=== PATIENT | male | born 1990 | race Caucasian/White ===

== ENCOUNTER 2018-10-03 22:08 | Emergency (ER) | payer OTHER ==
[2018-10-03 22:16] VITALS: BP 151/81; PULSE 73; RESP 16; TEMP 98.4
--- NOTE | 2018-10-03 22:42 | ED ---
General Adult HPI - General Chief complaint: Animal Bite Stated complaint: Spider bite Time Seen by Provider: 10/03/18 22:26 Source: patient Mode of arrival: ambulatory Limitations: no limitations - History of Present Illness Initial comments: This is a 28-year-old male who presents emergency department for redness and swelling of the right elbow. The patient states he noticed a few days ago and has gradually worsened. He states that there is been some drainage that he has been squeezing out of it. He is noticed that there is been increased swelling on the forearm she decided come emergency department. He denies any fevers or chills. No numbness, tingling, or weakness in his extremity. He does not recall exactly how he got the lesion there. He denies any other cuts or wounds. No other redness anywhere else. No other acute complaints. - Related Data Home Medications Medication Instructions Recorded Confirmed No Known Home Medications 10/03/18 10/03/18 Previous Rx's Medication Instructions Recorded Sulfamethox-Tmp 800-160Mg [Bactrim 1 tab PO Q12HR #14 tab 10/03/18 DS 800-160 mg] Allergies Allergy/AdvReac Type Severity Reaction Status Date / Time No Known Allergies Allergy Verified 10/03/18 22:16 Review of Systems ROS Statement: Those systems with pertinent positive or pertinent negative responses have been documented in the HPI. ROS Other: All systems not noted in ROS Statement are negative. Past Medical History Additional Past Medical History / Comment(s): ulcerative colitis. History of Any Multi-Drug Resistant Organisms: None Reported Past Surgical History: No Surgical Hx Reported Past Psychological History: No Psychological Hx Reported Smoking Status: Former smoker Past Alcohol Use History: None Reported Past Drug Use History: None Reported General Exam - General Exam Comments Initial Comments: Constitutional: [Awake alert] [Appears comfortable] Head: [Normocephalic atraumatic] Eyes: [no conjunctival injection] [No scleral icterus] [EOMI] Neck: [No JVD] [Supple] Heart: [Regular rate rhythm] [normal S1-S2] [no murmurs] Lungs: [Clear to auscultation bilaterally] [No wheezing] [No rales] Abdomen: [Soft] [nondistended] [nontender] Extremities: [Non edematous] [DP pulses intact] [Radial pulses intact], there is a 2 cm in diameter abscess to the right posterior elbow just distal to the olecranon. There is cellulitis extending down the forearm to about the mid forearm. The patient is neurovascularly intact distally. Neuro: [A&Ox3] [No focal neurologic deficits] Psych: [Appropriate mood and affect] Limitations: no limitations Course Vital Signs 10/03/18 22:13 Temperature 98.4 F Pulse Rate 73 Respiratory 16 Rate Blood Pressure 151/81 O2 Sat by Pulse 98 Oximetry Procedures - Incision & Drainage Consent Obtained: verbal consent Site: upper extremity Size (cm): 2 Anesthetic Used: lidocaine 1% Amount (mLs): 2 I&D Cleaning Method: Betadine Sterile Field Used?: Yes Scalpel Used: #15 I&D Drainage Obtained: Pus, Blood Culture Obtained?: No Patient Tolerated Procedure: well, no complications Medical Decision Making - Medical Decision Making This is a 28-year-old male who presents emergency department for redness of the right elbow. The patient was found have an abscess. This was incised and drained at bedside. The patient tolerated this well. The patient will be sent home with Bactrim to take twice a day. Told to return if he had increased swelling or redness. Otherwise follow-up with his primary doctor for reevaluation in the next few days. All questions were answered. Disposition Clinical Impression: Abscess Disposition: HOME SELF-CARE Condition: Stable Instructions: Abscess (ED) Prescriptions: Sulfamethox-Tmp 800-160Mg [Bactrim DS 800-160 mg] 1 tab PO Q12HR #14 tab Is patient prescribed a controlled substance at d/c from ED?: No Referrals: Negra Weldon MD [Primary Care Provider] - 1-2 days
== END 2018-10-03 22:57 | disposition home or self-care (01) ==
LOC: EC 22:08
DX: L02.413 Cutaneous abscess of right upper limb (principal); Z87.891 Personal history of nicotine dependence
CPT/HCPCS: 10060; 99283

== ENCOUNTER 2019-11-13 16:20 | Emergency (ER) | payer OTHER ==
[2019-11-13 16:50] VITALS: BP 121/79; PULSE 87; RESP 18; TEMP 99.5
[2019-11-13] MEDS ORDERED: ACETAMINOPHEN TAB 325 MG TAB PO STA (17:19)
--- NOTE | 2019-11-13 17:52 | ED ---
URI HPI - General Chief Complaint: Upper Respiratory Infection Stated Complaint: sore throat/congestion/headache Source: patient Mode of arrival: ambulatory Limitations: no limitations - History of Present Illness Initial Comments: 29yo with no PMH presenting for cc of sore throat, cough congestion x 1 day. Patient states he was feeling okay yesterday but today dveloped a severe sore throat and cough.cannot discern. Throat Patient thinks he has a fever. Denies any chest pain shortness of breath. Patient denies any difficulty breathing patient denies neck stiffness. Patient states his a slight headache radial review of systems negative upon arrival patient appears well besides acute distress - Related Data Previous Rx's Medication Instructions Recorded Sulfamethox-Tmp 800-160Mg [Bactrim 1 tab PO Q12HR #14 tab 10/03/18 DS 800-160 mg] Oseltamivir [Tamiflu] 75 mg PO Q12HR 5 Days #10 cap 11/13/19 Allergies Allergy/AdvReac Type Severity Reaction Status Date / Time No Known Allergies Allergy Verified 11/13/19 16:47 Review of Systems ROS Statement: Those systems with pertinent positive or pertinent negative responses have been documented in the HPI. ROS Other: All systems not noted in ROS Statement are negative. Past Medical History Additional Past Medical History / Comment(s): ulcerative colitis. History of Any Multi-Drug Resistant Organisms: None Reported Past Surgical History: No Surgical Hx Reported Past Psychological History: No Psychological Hx Reported Smoking Status: Former smoker Past Alcohol Use History: None Reported Past Drug Use History: None Reported General Exam - General Exam Comments Initial Comments: General: The patient is awake and alert, in no distress, and does not appear acutely ill. Eye: +3 mm pupils are equal, round and reactive to light, extra-ocular movements are intact. No nystagmus. There is normal conjunctiva bilaterally. No signs of icterus. No photophobia Ears, nose, mouth and throat: There are moist mucous membranes and no oral lesions. Oropharynx was erythematous there is no tonsillar enlargement exudates or lesions. Uvula midline. Tympanic membranes are not erythematous or is no effusions bulging or retraction. No tenderness to palpation of the mastoid. No anterior cervical lymphadenopathy. Rhinorrhea, clear and bilateral nares. No tripoding, no drooling. Neck: The neck is supple, there is no tenderness or JVD. No nuchal rigidity Cardiovascular: There is a regular rate and rhythm. No murmur, rub or gallop is appreciated. Respiratory: Lungs are clear to auscultation, respirations are non-labored, breath sounds are equal. No wheezes, stridor, rales, or rhonchi. No retractions or abdominal breathing. Dry cough Gastrointestinal: Soft, non-distended, non-tender abdomen without masses or organomegaly noted. There is no rebound or guarding present. Bowel sounds are unremarkable. Musculoskeletal: Normal ROM, no tenderness. Strength 5/5. Sensation intact. Radial pulses equal bilaterally 2+. Neurological: A&O x 3. CN II-XII intact grossly, There are no obvious motor or sensory deficits. Coordination appears grossly intact. Speech appears normal, no muffling. Skin: Skin is warm and dry and no rashes or lesions are noted. No extremity edema Psychiatric: Cooperative Limitations: no limitations Course Vital Signs 11/13/19 16:47 Temperature 99.5 F Pulse Rate 87 Respiratory 18 Rate Blood Pressure 121/79 O2 Sat by Pulse 98 Oximetry Medical Decision Making - Medical Decision Making review of present for sore throat cough fever. Influenza B-positive. Patient appears well no signs of respiratory distress. Chest x-ray clear no pneumonia. At this time I feel patient is stable for discharge with Tamiflu. Patient agreeable to care plan and discharge. Return parameters discussed. Case discussed with Dr. Baker. - Lab Data Lab Results 11/13/19 11/13/19 Range/Units 17:18 17:18 Influenza Type A RNA Not Detected (Not Detectd) Influenza Type B (PCR) Detected H (Not Detectd) Group A Strep Rapid Negative (Negative) Disposition Clinical Impression: Influenza B Disposition: HOME SELF-CARE Condition: Good Instructions (If sedation given, give patient instructions): Influenza (ED) Additional Instructions: Please use medication as discussed. Please follow-up with family doctor in the next 2 days Please return to emergency room if the symptoms increase or worsen or for any other concerns-difficulty breathing. Prescriptions: Oseltamivir [Tamiflu] 75 mg PO Q12HR 5 Days #10 cap Is patient prescribed a controlled substance at d/c from ED?: No Referrals: Negra Weldon MD [Primary Care Provider] - 1-2 days Time of Disposition: 17:52
--- NOTE | 2019-11-13 18:09 | XR ---
EXAMINATION TYPE: XR chest 2V DATE OF EXAM: 11/13/2019 COMPARISON: None INDICATION: Fever, cough TECHNIQUE: Frontal and lateral views of the chest are obtained. FINDINGS: The heart size is normal. The pulmonary vasculature is normal. The lungs are clear. IMPRESSION: 1. No acute pulmonary process.
== END 2019-11-13 19:14 | disposition home or self-care (01) ==
LOC: EC 16:20
DX: J10.1 Influenza due to other identified influenza virus with other respiratory manifestations (principal); Z87.891 Personal history of nicotine dependence
CPT/HCPCS: 71046; 87081; 87430; 87502; 99284

== ENCOUNTER 2019-11-22 10:10 | Emergency (ER) | payer OTHER ==
[2019-11-22 10:23] VITALS: BP 126/73; RESP 18; TEMP 99.1
[2019-11-22] MEDS ORDERED: IPRATROPIUM-ALBUTEROL 3 ML NEB INHALATION STA (10:43)
[2019-11-22] MEDS ORDERED: LIDOCAINE VISCOUS 2% 15 ML CUP MUCOUS MEM ONE (10:43)
--- NOTE | 2019-11-22 10:57 | XR ---
EXAMINATION TYPE: XR soft tissue neck , 2 VIEWS DATE OF EXAM ORDERED: 11/22/2019 HISTORY: Difficult swallowing. COMPARISON: None. FINDINGS: Prevertebral soft tissues are normal. The epiglottis is normal. No radiopaque foreign body is seen. IMPRESSION: NORMAL SOFT TISSUE VIEWS OF THE NECK.
--- NOTE | 2019-11-22 10:58 | XR ---
EXAMINATION TYPE: XR chest 2V DATE OF EXAM: 11/22/2019 HISTORY: cough. REFERENCE: Previous study dated 11/13/2019. FINDINGS: Lungs remain clear. Pleural space are clear. The heart is not enlarged. IMPRESSION: NORMAL CHEST.
[2019-11-22 10:59] VITALS: PULSE 68
[2019-11-22] MEDS ORDERED: DEXAMETHASONE SOD PHOSPHATE 4 MG/ML 1 ML VIAL PO ONE (11:05)
--- NOTE | 2019-11-22 11:07 | ED ---
ENT HPI - General Chief complaint: ENT Stated complaint: Throat Tightness/DENITA Time Seen by Provider: 11/22/19 10:24 Source: patient, RN notes reviewed Mode of arrival: ambulatory Limitations: no limitations - History of Present Illness Initial comments: 29-year-old male presents emergency Department with chief complaint of sore throat, congestion. Patient states that he was diagnosed with influenza tetanus Tamiflu states that he was doing well but states in the 48 hours is worsened states that his pain was well because of pain. He has no shortness of breath is not a slight cough. Patient states that he felt something bulging out of his neck and he felt that he had a push it back in when he was lifting weights. Patient states he has not had this recur at this time. Patient denies any recent fevers chills no neck stiffness or headache or dizziness. - Related Data Previous Rx's Medication Instructions Recorded Sulfamethox-Tmp 800-160Mg [Bactrim 1 tab PO Q12HR #14 tab 10/03/18 DS 800-160 mg] Oseltamivir [Tamiflu] 75 mg PO Q12HR 5 Days #10 cap 11/13/19 Azithromycin [Zithromax Z-pack] 0 mg PO DIRECTED #1 pack 11/22/19 Allergies Allergy/AdvReac Type Severity Reaction Status Date / Time No Known Allergies Allergy Verified 11/22/19 10:22 Review of Systems ROS Statement: Those systems with pertinent positive or pertinent negative responses have been documented in the HPI. ROS Other: All systems not noted in ROS Statement are negative. Past Medical History Additional Past Medical History / Comment(s): ulcerative colitis. History of Any Multi-Drug Resistant Organisms: C-DIFF Date of last positivie culture/infection: 2010 Past Surgical History: No Surgical Hx Reported Past Psychological History: No Psychological Hx Reported Smoking Status: Former smoker Past Alcohol Use History: None Reported Past Drug Use History: None Reported General Exam Limitations: no limitations General appearance: alert, in no apparent distress Head exam: Present: atraumatic, normocephalic, normal inspection Eye exam: Present: normal appearance, PERRL, EOMI. Absent: scleral icterus, conjunctival injection, periorbital swelling ENT exam: Present: mucous membranes moist, TM's normal bilaterally, normal external ear exam. Absent: normal oropharynx (Erythema posterior pharynx swan secretions well) Neck exam: Present: normal inspection, full ROM. Absent: tenderness, meningismus, lymphadenopathy Respiratory exam: Present: normal lung sounds bilaterally. Absent: respiratory distress, wheezes, rales, rhonchi, stridor Cardiovascular Exam: Present: regular rate, normal rhythm, normal heart sounds. Absent: systolic murmur, diastolic murmur, rubs, gallop, clicks Course Vital Signs 11/22/19 11/22/19 10:19 10:57 Temperature 99.1 F Pulse Rate 67 68 Respiratory 18 Rate Blood Pressure 126/73 O2 Sat by Pulse 98 Oximetry Medical Decision Making - Medical Decision Making Chest x-ray and soft tissue x-ray unremarkable patient's on secretions well. There is concern for possible strep infection. Patient was started on antibiotics return parameters were discussed. Disposition Clinical Impression: Acute pharyngitis Disposition: HOME SELF-CARE Condition: Stable Instructions (If sedation given, give patient instructions): Pharyngitis (ED) Additional Instructions: Please return to the Emergency Department if symptoms worsen or any other concerns. Prescriptions: Azithromycin [Zithromax Z-pack] 0 mg PO DIRECTED #1 pack Is patient prescribed a controlled substance at d/c from ED?: No Referrals: Negra Weldon MD [Primary Care Provider] - 1-2 days Time of Disposition: 11:06
== END 2019-11-22 11:13 | disposition home or self-care (01) ==
LOC: EC 10:10
DX: J02.9 Acute pharyngitis, unspecified (principal); Z87.891 Personal history of nicotine dependence
CPT/HCPCS: 94640; 70360; 71046; 99283; J1100

== ENCOUNTER → 2020-07-11 | Outpatient (CLI) | payer OTHER ==
--- NOTE | 2020-07-11 17:19 | FL ---
EXAMINATION TYPE: FL barium swallow DATE OF EXAM: 07/11/2020 CLINICAL HISTORY: Dysphasia, history of ulcerative colitis TECHNIQUE: A double contrast esophagram is performed utilizing air and barium. A total of 61 second s of fluoroscopic time was utilized during procedure. 14 images COMPARISON: None FINDINGS: Esophagus dilates to normal caliber has normal contour to the gastroesophageal junction. Ga stroesophageal junction opens to normal caliber. There is normal propulsion of the esophageal bolus i n the horizontal drinking position. No secondary or tertiary contractions are evident. With rolling o n the table, very minimal reflux in the distal esophagus may be present. IMPRESSION: 1. Very minimal gastroesophageal reflux. 2. No suspicious abnormality within the esophagram otherwise.
== END | disposition home or self-care (01) ==
LOC: RADUSWWP 08:43
PROVIDERS: ATTEND Family Medicine
DX: K21.9 Gastro-esophageal reflux disease without esophagitis (principal)
CPT/HCPCS: 74220

== ENCOUNTER → 2020-11-22 | Day surgery (SDC) | payer OTHER ==
[2020-11-17 11:49] VITALS: BMI 24.8
[~2020-11-22] MED LIST: LACTATED RINGERS 1,000 ML IV ONE; LACTATED RINGERS 1,000 ML IV SCH; LIDOCAINE 1% (10MG/ML) FOR IV START INTRADERMA PRN; LIDOCAINE 1% INJ 10MG/ML (20 ML MDV) ONE; MIDAZOLAM 2 MG/2 ML VIAL ONE; PROPOFOL 10 MG/ML 20 ML VIAL IV ONE; fentaNYL (PF) 50 MCG/ML 2 ML AMP ONE
[2020-11-22 10:49] VITALS: TEMP 97.8
--- NOTE | 2020-11-22 11:17 | P.GSHP ---
History of Present Illness H&P Date: 11/22/20 Chief Complaint: GERD, dysphagia, rectal bleed 30-year-old male here for upper and lower endoscopy. Patient has had complaints of a fullness in his throat. Says it difficult to swallow and breathing at times. Says he needs to sleep with something pop under his chin at times to help with his breathing. Also describes some reflux. Recent upper GI shows mild reflux. Patient's ENT at [facility]. They are requesting upper endoscopy. Patient also has history of ulcerative colitis. No recent therapy for that. Has rare episodes of rectal bleeding. Past Medical History Additional Past Medical History / Comment(s): ulcerative colitis. History of Any Multi-Drug Resistant Organisms: C-DIFF Date of last positivie culture/infection: 2010 MDRO Source:: STOOL Past Surgical History: No Surgical Hx Reported Additional Past Surgical History / Comment(s): COLONOSCPOY Past Anesthesia/Blood Transfusion Reactions: No Reported Reaction Smoking Status: Former smoker, Vaper - Past Family History Mother Family Medical History: No Reported History Medications and Allergies Home Medications Medication Instructions Recorded Confirmed Type Omeprazole 20 mg PO BID 11/17/20 11/17/20 History Allergies Allergy/AdvReac Type Severity Reaction Status Date / Time No Known Allergies Allergy Verified 11/17/20 11:42 Surgical - Exam Vital Signs Temp Pulse Resp BP Pulse Ox 97.8 F 78 18 132/78 98 11/22/20 10:48 11/22/20 10:48 11/22/20 10:48 11/22/20 10:48 11/22/20 10:48 Physical exam: General: Well-developed, well-nourished HEENT: Normocephalic, sclerae nonicteric Abdomen: Nontender, nondistended Extremities: No edema Neuro: Alert and oriented Assessment and Plan (1) Rectal bleeding Narrative/Plan: Will proceed with upper and lower endoscopy Current Visit: Yes Status: Acute Code(s): K62.5 - HEMORRHAGE OF ANUS AND RECTUM SNOMED Code(s): 01502813
--- NOTE | 2020-11-22 11:35 | P.PCN ---
Date of Procedure: 11/22/20 Procedure(s) Performed: PREOPERATIVE DIAGNOSIS: GERD, dysphagia, globus, rectal bleeding POSTOPERATIVE DIAGNOSIS: Gastritis, mild proctitis PROCEDURE: 1. EGD with biopsy 2. Colonoscopy with biopsy ANESTHESIA: MAC SURGEON: Gibson Ann M.D. SPECIMENS: Antrum, body ENDOSCOPIC PROCEDURE: The patient was on the endoscopy table in the left decubitus position. The Olympus gastroscope was inserted into the oropharynx and passed under direct visualization to the region of the third portion of the duodenum. From that point the scope was slowly withdrawn inspecting all surfaces carefully. There were no neoplastic inflammatory or polypoid lesions throughout the duodenum. The pylorus was widely patent. The stomach was carefully inspected. There was gastritis present. A biopsy of the antrum took place to rule out H. pylori. A biopsy of the body of the stomach also took place where the gastritis was more impressive. There were no ulcerations or erosions seen. Retroflexion revealed a normal hiatus. The esophagus was then carefully examined. There were no neoplastic inflammatory or polypoid lesions throughout the visualized esophagus. The patient was kept on the endoscopy table in the left decubitus position. The Olympus colonoscope was inserted into the anus and passed under direct visualization to the base of the cecum. The appendiceal orifice was visualized. From that point the scope was slowly withdrawn inspecting all surfaces carefully. There were no neoplastic inflammatory or polypoid lesions throughout the cecum, ascending, transverse, descending, and sigmoid colon. In the rectum there was noted be minimal inflammatory changes seen distally. Biopsies were taken to rule out proctitis. There was no visible diverticulosis. The patient's prep overall was somewhat poor particularly on the right side of the colon with some retained stool. Digital rectal examination was normal. The patient was taken to the recovery room in stable condition per anesthesia guidelines. RECOMMENDATIONS: Await biopsy results. Returned to ENT if complaints of globus persist.
[2020-11-22 11:40] VITALS: RESP 16
[2020-11-22 12:02] VITALS: BP 118/44; PULSE 54
== END ==
LOC: ORWHC2ENDO 10:35
PROVIDERS: ATTEND Surgery
DX: K29.51 Unspecified chronic gastritis with bleeding (principal); K51.211 Ulcerative (chronic) proctitis with rectal bleeding; K21.9 Gastro-esophageal reflux disease without esophagitis; F45.8 Other somatoform disorders; F17.290 Nicotine dependence, other tobacco product, uncomplicated; Z86.19 Personal history of other infectious and parasitic diseases; Z98.890 Other specified postprocedural states; Z79.899 Other long term (current) drug therapy
CPT/HCPCS: 88305; 45380; 43239; J2250; J2001; J3010; J2704

== ENCOUNTER 2021-03-28 12:39 | Observation (INO) | payer OTHER ==
--- NOTE | 2021-03-28 12:55 | ED ---
General Adult HPI - General Chief complaint: Chest Pain Stated complaint: abn EKG Time Seen by Provider: 03/28/21 12:46 Source: patient, RN notes reviewed Mode of arrival: ambulatory Limitations: no limitations - History of Present Illness Initial comments: Patient is a pleasant 30-year-old male presenting to the emergency Department with chest discomfort. Patient states discomfort has been occurring for quite some while at this time. Patient states he does have palpitations: Feeling like his heart beat is irregular and pounding. Patient states at this time only has mild sharp discomfort. Patient did go to his doctor and was sent over secondary to bradycardia. Patient had 2 EKGs showing heart rate of 34 and 37. Patient states he did have history of bradycardia in the past however was told he was too young to need a pacemaker. 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 - Related Data Home Medications Medication Instructions Recorded Confirmed No Known Home Medications 03/28/21 03/28/21 Allergies Allergy/AdvReac Type Severity Reaction Status Date / Time No Known Allergies Allergy Verified 03/28/21 13:39 Review of Systems ROS Statement: Those systems with pertinent positive or pertinent negative responses have been documented in the HPI. ROS Other: All systems not noted in ROS Statement are negative. Constitutional: Denies: fever Eyes: Denies: eye pain ENT: Denies: ear pain Respiratory: Denies: cough Cardiovascular: Reports: as per HPI, chest pain, palpitations Endocrine: Denies: fatigue Gastrointestinal: Denies: abdominal pain Genitourinary: Denies: urgency Musculoskeletal: Denies: back pain Skin: Denies: rash Neurological: Denies: weakness Past Medical History Additional Past Medical History / Comment(s): ulcerative colitis. History of Any Multi-Drug Resistant Organisms: C-DIFF Date of last positivie culture/infection: 2010 Past Surgical History: No Surgical Hx Reported Past Psychological History: No Psychological Hx Reported Smoking Status: Vaper Past Alcohol Use History: None Reported Past Drug Use History: None Reported, Marijuana General Exam Limitations: no limitations General appearance: alert, in no apparent distress Head exam: Present: normocephalic Eye exam: Present: normal appearance Neck exam: Present: normal inspection Respiratory exam: Present: normal lung sounds bilaterally. Absent: chest wall tenderness Cardiovascular Exam: Present: regular rate, normal rhythm, normal heart sounds Expanded Peripheral pulses: 2+: Radial (R), Radial (L), Posterior Tibialis (R), Posterior Tibialis (L) GI/Abdominal exam: Present: soft. Absent: tenderness Extremities exam: Present: normal inspection. 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 Short AR of 102. QRS 108. QT 426. QTc 384. Normal axis. LVH criteria. No acute ST change. Medical Decision Making - Medical Decision Making Patient reevaluated and resting comfortably in bed. Heart rate 44. Patient updated on results and plan. Case discussed with Dr. Burns, who will admit covering for Dr. Inga Poon. Patient will benefit from echo and cardiology evaluation. - Lab Data Result diagrams: 03/28/21 13:08 03/28/21 13:08 Lab Results 03/28/21 03/28/21 03/28/21 Range/Units 13:08 13:08 13:08 WBC 5.0 (3.8-10.6) k/uL RBC 4.97 (4.30-5.90) m/uL Hgb 16.0 (13.0-17.5) gm/dL Hct 46.4 (39.0-53.0) % MCV 93.3 (80.0-100.0) fL MCH 32.2 (25.0-35.0) pg MCHC 34.5 (31.0-37.0) g/dL RDW 12.4 (11.5-15.5) % Plt Count 237 (150-450) k/uL MPV 8.3 Neutrophils % 64 % Lymphocytes % 25 % Monocytes % 6 % Eosinophils % 1 % Basophils % 0 % Neutrophils # 3.2 (1.3-7.7) k/uL Lymphocytes # 1.3 (1.0-4.8) k/uL Monocytes # 0.3 (0-1.0) k/uL Eosinophils # 0.1 (0-0.7) k/uL Basophils # 0.0 (0-0.2) k/uL PT 11.0 (9.0-12.0) sec INR 1.0 (<1.2) APTT 22.9 (22.0-30.0) sec Sodium 140 (137-145) mmol/L Potassium 4.5 (3.5-5.1) mmol/L Chloride 107 (98-107) mmol/L Carbon Dioxide 24 (22-30) mmol/L Anion Gap 9 mmol/L BUN 14 (9-20) mg/dL Creatinine 1.27 H (0.66-1.25) mg/dL Est GFR (CKD-EPI)AfAm 87 (>60 ml/min/1.73 sqM) Est GFR (CKD-EPI)NonAf 75 (>60 ml/min/1.73 sqM) Glucose 132 H (74-99) mg/dL Calcium 9.8 (8.4-10.2) mg/dL Magnesium 1.9 (1.6-2.3) mg/dL Total Bilirubin 0.8 (0.2-1.3) mg/dL AST 50 (17-59) U/L ALT 68 H (4-49) U/L Alkaline Phosphatase 60 (38-126) U/L Creatine Kinase 134 (55-170) U/L Troponin I (0.000-0.034) ng/mL Total Protein 7.7 (6.3-8.2) g/dL Albumin 4.7 (3.5-5.0) g/dL TSH 1.450 (0.465-4.680) mIU/L Free T4 1.21 (0.78-2.19) ng/dL Free T3 pg/mL 5.1 (2.8-5.3) pg/ml 03/28/21 Range/Units 13:08 WBC (3.8-10.6) k/uL RBC (4.30-5.90) m/uL Hgb (13.0-17.5) gm/dL Hct (39.0-53.0) % MCV (80.0-100.0) fL MCH (25.0-35.0) pg MCHC (31.0-37.0) g/dL RDW (11.5-15.5) % Plt Count (150-450) k/uL MPV Neutrophils % % Lymphocytes % % Monocytes % % Eosinophils % % Basophils % % Neutrophils # (1.3-7.7) k/uL Lymphocytes # (1.0-4.8) k/uL Monocytes # (0-1.0) k/uL Eosinophils # (0-0.7) k/uL Basophils # (0-0.2) k/uL PT (9.0-12.0) sec INR (<1.2) APTT (22.0-30.0) sec Sodium (137-145) mmol/L Potassium (3.5-5.1) mmol/L Chloride (98-107) mmol/L Carbon Dioxide (22-30) mmol/L Anion Gap mmol/L BUN (9-20) mg/dL Creatinine (0.66-1.25) mg/dL Est GFR (CKD-EPI)AfAm (>60 ml/min/1.73 sqM) Est GFR (CKD-EPI)NonAf (>60 ml/min/1.73 sqM) Glucose (74-99) mg/dL Calcium (8.4-10.2) mg/dL Magnesium (1.6-2.3) mg/dL Total Bilirubin (0.2-1.3) mg/dL AST (17-59) U/L ALT (4-49) U/L Alkaline Phosphatase (38-126) U/L Creatine Kinase (55-170) U/L Troponin I <0.012 (0.000-0.034) ng/mL Total Protein (6.3-8.2) g/dL Albumin (3.5-5.0) g/dL TSH (0.465-4.680) mIU/L Free T4 (0.78-2.19) ng/dL Free T3 pg/mL (2.8-5.3) pg/ml - Radiology Data Radiology results: image reviewed (Chest x-ray shows no acute process) Disposition Clinical Impression: Chest pain, Bradycardia Disposition: ADMITTED IP TO THIS [facility] Is patient prescribed a controlled substance at d/c from ED?: No Referrals: Negra Weldon MD [Primary Care Provider] - 1-2 days Decision Time: 14:09
[2021-03-28 13:21] LABS: Basophils % (A) 0 %; Eosinophils # (A) 0.1 k/uL (0-0.7); Eosinophils % (A) 1 %; HCT 46.4 % (39.0-53.0); Lymphocytes # (A) 1.3 k/uL (1.0-4.8); Lymphocytes % (A) 25 %; MCH 32.2 pg (25.0-35.0); MCHC 34.5 g/dL (31.0-37.0); MCV 93.3 fL (80.0-100.0); Mean Platelet Volume 8.3; Monocytes # (A) 0.3 k/uL (0-1.0); Monocytes % (A) 6 %; Neutrophils # (A) 3.2 k/uL (1.3-7.7); Neutrophils % (A) 64 %; Platelet Count 237 k/uL (150-450); RBC 4.97 m/uL (4.30-5.90); RDW 12.4 % (11.5-15.5)
--- NOTE | 2021-03-28 13:27 | XR ---
EXAMINATION TYPE: XR chest 2V DATE OF EXAM: 03/28/2021 COMPARISON: Chest x-ray April 22, 2020 HISTORY: Abnormal EKG. Bradycardia. TECHNIQUE: Frontal and lateral views of the chest are obtained. FINDINGS: There is no suspicious new focal air space opacity, pleural effusion, or pneumothorax seen . The cardiac silhouette size remains within normal limits. The osseous structures are intact. Ove rlying EKG leads are now present. IMPRESSION: No acute cardiopulmonary process. No significant change from prior.
[2021-03-28 13:30] LABS: Albumin 4.7 g/dL (3.5-5.0); Calcium 9.8 mg/dL (8.4-10.2); Magnesium 1.9 mg/dL (1.6-2.3); Potassium 4.5 mmol/L (3.5-5.1); Total Bilirubin 0.8 mg/dL (0.2-1.3); Total Protein 7.7 g/dL (6.3-8.2)
[2021-03-28 13:47] LABS: T4, Free (Free Thyroxine) 1.21 ng/dL (0.78-2.19)
[2021-03-28 14:00] LABS: Partial Thromboplastin Time 22.9 sec (22.0-30.0)
[2021-03-28] MEDS ORDERED: ASPIRIN 81 MG PO STA (14:09)
--- NOTE | 2021-03-28 17:23 | P.HPIM ---
History of Present Illness 30-year-old male came in to he was sent from PCPs office for bradycardia. Patient also did complain of mild chest pressure like sensation which resolved at this time it's in the retrosternal area nonradiating not associated with food nonpleuritic. Patient didn't feel somewhat irregular and pounding sensation. Patient is found to have sinus bradycardia because of which patient was sent here. Patient had 2 EKGs with heart rates of 34 and 37 although they both of these are sinus bradycardia. Patient is a 30-year-old healthy muscular male, worksout on a regular basis patient had a history of IV heroin use in the past. EKG here did show sinus bradycardia as well. Patient is not symptomatic with this sinus bradycardia echocardiogram was ordered. Cardiology was consulted. Review of Systems REVIEW OF SYSTEMS: CONSTITUTIONAL: No fever, no malaise, no fatigue. HEENT: No recent visual problems or hearing problems. Denied any sore throat. CARDIOVASCULAR: No orthopnea, PND, no syncope. PULMONARY: No shortness of breath, no cough, no hemoptysis. GASTROINTESTINAL: No diarrhea, no nausea, no vomiting, no abdominal pain. NEUROLOGICAL: No headaches, no weakness, no numbness. HEMATOLOGICAL: Denies any bleeding or petechiae. GENITOURINARY: Denies any burning micturition, frequency, or urgency. MUSCULOSKELETAL/RHEUMATOLOGICAL: Denies any joint pain, swelling, or any muscle pain. ENDOCRINE: Denies any polyuria or polydipsia. The rest of the 14-point review of systems is negative. Past Medical History Additional Past Medical History / Comment(s): ulcerative colitis. History of Any Multi-Drug Resistant Organisms: C-DIFF Date of last positivie culture/infection: 2010 Past Surgical History: No Surgical Hx Reported Past Psychological History: No Psychological Hx Reported Smoking Status: Vaper Past Alcohol Use History: None Reported Past Drug Use History: None Reported, Marijuana Medications and Allergies Home Medications Medication Instructions Recorded Confirmed Type No Known Home Medications 03/28/21 03/28/21 History Allergies Allergy/AdvReac Type Severity Reaction Status Date / Time No Known Allergies Allergy Verified 03/28/21 13:39 Physical Exam Vitals: Vital Signs Temp Pulse Pulse Resp BP Pulse Ox 03/28/21 15:41 40 L 18 112/73 97 03/28/21 14:17 42 L 18 116/72 98 03/28/21 13:42 45 L 03/28/21 12:40 97.9 F 58 L 18 129/84 98 Intake and Output 03/28/21 03/28/21 03/28/21 06:59 14:59 22:59 Other: Weight 77.111 kg PHYSICAL EXAMINATION: GENERAL: The patient is alert and oriented x3, not in any acute distress. Well developed, well nourished. He is a muscular young male HEENT: Pupils are round and equally reacting to light. EOMI. No scleral icterus. No conjunctival pallor. Normocephalic, atraumatic. No pharyngeal erythema. No thyromegaly. CARDIOVASCULAR: S1 and S2 present. No murmurs, rubs, or gallops. PULMONARY: Chest is clear to auscultation, no wheezing or crackles. ABDOMEN: Soft, nontender, nondistended, normoactive bowel sounds. No palpable organomegaly. MUSCULOSKELETAL: No joint swelling or deformity. EXTREMITIES: No cyanosis, clubbing, or pedal edema. NEUROLOGICAL: Gross neurological examination did not reveal any focal deficits. SKIN: No rashes. Results CBC & Chem 7: 03/28/21 13:08 03/28/21 13:08 Labs: Abnormal Lab Results - Last 24 Hours (Table) 03/28/21 Range/Units 13:08 Creatinine 1.27 H (0.66-1.25) mg/dL Glucose 132 H (74-99) mg/dL ALT 68 H (4-49) U/L Assessment and Plan Plan: - chest pain: Atypical atypical will rule out acute coronary syndromes. -Sinus bradycardia in spite of his heart rate being below 40 is probably normal for the patient as patient is healthy and male. Probably will not need any intervention will be monitored overnight echocardiogram will be obtained -Elevated creatinine: 1.27 creatinine is normal for the patient because of his muscle mass. -History of heroine use has been clean for more than 3 years
[2021-03-28] MEDS: SODIUM CHLORIDE 0.9% 1,000 ML IV SCH (23:19)
--- NOTE | 2021-03-29 07:16 | ECHOF ---
Referral Reason:Bradycardia and palpitations, assess valves MEASUREMENTS -------- HEIGHT: 177.8 cm WEIGHT: 77.1 kg BP: 129/84 RVIDd: 3.3 cm (< 3.3) IVSd: 1.1 cm (0.6 - 1.1) LVIDd: 4.9 cm (3.9 - 5.3) LVPWd: 1.1 cm (0.6 - 1.1) IVSs: 1.5 cm LVIDs: 2.7 cm LVPWs: 1.8 cm LA Diam: 3.5 cm (2.7 - 3.8) LAESV Index (A-L): 26.62 ml/m Ao Diam: 3.0 cm (2.0 - 3.7) AV Cusp: 2.6 cm (1.5 - 2.6) MV EXCURSION: 17.007 mm (> 18.000) MV EF SLOPE: 149 mm/s (70 - 150) EPSS: 0.5 cm MV E Trent: 0.91 m/s MV DecT: 265 ms MV A Trent: 0.54 m/s MV E/A Ratio: 1.69 RAP: 5.00 mmHg RVSP: 23.58 mmHg FINDINGS -------- Resting bradycardia (HR<60bpm). This was a technically excellent study. The left ventricular size is normal. There is borderline concentric left ventricular hypertrophy. Overall left ventricular systolic function is normal with, an EF between 60 - 65 %. The right ventricle is mildly enlarged. Normal LA size by volume 22+/-6 ml/m2. The right atrium is normal in size. Interatrial and interventricular septum intact. The aortic valve is trileaflet, and appears structurally normal. No aortic stenosis or regurgitation. Mild mitral regurgitation is present. Mild tricuspid regurgitation present. Right ventricular systolic pressure is normal at < 35 mmHg. Trace/mild (physiologic) pulmonic regurgitation. The aortic root size is normal. Normal inferior vena cava with normal inspiratory collapse consistent with estimated right atrial pre ssure of 5 mmHg. There is no pericardial effusion. CONCLUSIONS -------- 1. The left ventricular size is normal. 2. There is borderline concentric left ventricular hypertrophy. 3. Overall left ventricular systolic function is normal with, an EF between 60 - 65 %. 4. The right ventricle is mildly enlarged. 5. The aortic valve is trileaflet, and appears structurally normal. No aortic stenosis or regurgitati on. 6. Mild mitral regurgitation is present. 7. Mild tricuspid regurgitation present. 8. Trace/mild (physiologic) pulmonic regurgitation. 9. There is no pericardial effusion. SEPTIC TANK SETTER: Tasneem Yin RDCS
[2021-03-29] MEDS ORDERED: ASPIRIN 325 MG TAB PO SCH (09:00)
[2021-03-29] MEDS ORDERED: ASPIRIN 81 MG PO SCH (09:00)
[2021-03-29 10:26] LABS: Chol/HDL Ratio 4.5; LDL Cholesterol,Calculated 92.4 mg/dL (0.0-131.0); VLDL Calculation 12.6 mg/dL (5.00-40.00)
[2021-03-29] MEDS: SODIUM CHLORIDE 0.9% 1,000 ML IV SCH ×2 (11:03→14:17)
[2021-03-29 11:04] VITALS: BP 110/66; PULSE 42; RESP 18; TEMP 97.7
--- NOTE | 2021-03-29 15:03 | P.CRDCN ---
History of Present Illness History of present illness: 30-year-old male with a past medical history of polysubstance abuse- former tobacco use, former meth and IV heroin use, Currently in rehab quit 3 years ago, current vape pen use. He does not follow with a tax investigator. He presents to the emergency department being sent from PCPs office for bradycardia. Patient states that when he was in his 20s he had a syncopal episode in the shower. He did see a tax investigator, they placed a heart monitor. He states that the results showed that he may need a pacemaker but he was too young at that time. Since then patient has had intermittent episodes of lightheadedness, dizziness, and left sided chest spasm like sensation. They are worse when he relaxes and lying flat. When he does activity it does help relieve his symptoms. He does do heavy lifti ng at the gym and states sometimes when he is lifting heavy weights, especially lying flat and during bench presses, his symptoms increase and feels as if he may pass out. Patient currently does not take any medications. DIAGNOSTICS EKG reveals sinus bradycardia, heart rate 49, no significant STT wave abnormalities. Telemetry tracings sinus bradycardia patients heart rate in the 40s Chest xray no acute cardiopulmonary process Echocardiogram reviewed left ventricle systolic function is normal with EF between 66 5%, RV is mildly enlarged, mild mitral regurgitation, mild tricuspid regurgitation Laboratory reviewed, CBC unremarkable, sodium 140, potassium 4.5, serum creatinine 1.27, magnesium 1.9, troponin negative 3, TSH 1.4, triglycerides 63, cholesterol 135, LDL 92, COVID-19 negative REVIEW OF SYSTEMS At the time of my exam: CONSTITUTIONAL: Denies fever or chills. CARDIOVASCULAR: Positive syncope, positive chest pain, positive palpitations Denies orthopnea, PND RESPIRATORY: Denies cough. GASTROINTESTINAL: Denies abdominal pain, diarrhea, constipation, nausea or vomiting. MUSCULOSKELETAL: Denies myalgias. NEUROLOGIC: Positive lightheadedness, positive dizziness Denies numbness, tingling, headacbe or weakness. ENDOCRINE: Denies fatigue, weight change, polydipsia or polyurina. GENITOURINARY: Denies burning, hematuria or urgency with micturation. HEMATOLOGIC: Denies history of anemia or bleeding. PHYSICAL EXAMINATION Blood pressure [] heart rate [] afebrile and maintaining oxygen saturation on []. CONSTITUTIONAL: No apparent distress. HEENT: Head is normocephalic. Pupils are equal, round. Sclerae anicteric. Mucous membranes of the mouth are moist. No JVD. No carotid bruit. CHEST EXAMINATION: Lungs are clear to auscultation. No chest wall tenderness is noted on palpation or with deep breathing. HEART EXAMINATION: Regular rate and rhythm. S1, S2 heard. No murmurs, gallops or rub. ABDOMEN: Soft, nontender. Positive bowel sounds. EXTREMITIES: 2+ peripheral pulses, no lower extremity edema and no calf tenderness. NEUROLOGIC EXAMINATION: Patient is awake, alert and oriented x3. ASSESSMENT Sinus bradycardia Former polysubstance abuse Nicotine dependence PLAN -Patient ambulating in halls, HR increases above 50bmp. At this time, we do not recommend any intervention or further changes. No AV nora blocking agents. -Patient should follow up in the office with Dr. Goodman outpatient for further management of sinus bradycardia Thank you kindly for this consultation Nurse Practitioner note has been reviewed, I agree with a documented findings and plan of care. Patient was seen and examined. Past Medical History Additional Past Medical History / Comment(s): Bradycardia, ulcerative colitis, rectal bleed, gastritis, proctitis. History of Any Multi-Drug Resistant Organisms: None Reported Date of last positivie culture/infection: 2010 Past Surgical History: No Surgical Hx Reported Additional Past Surgical History / Comment(s): 11/2020 EGD/colonoscopy Past Anesthesia/Blood Transfusion Reactions: No Reported Reaction Smoking Status: Former smoker, Vaper - Past Family History Mother Family Medical History: Musculoskeletal Disorder, Neurologic Disorder, Renal Disease Additional Family Medical History / Comment(s): MS, CKD stage III Father History Unknown: Yes Medications and Allergies Home Medications Medication Instructions Recorded Confirmed Type No Known Home Medications 03/28/21 03/28/21 History Allergies Allergy/AdvReac Type Severity Reaction Status Date / Time No Known Allergies Allergy Verified 03/28/21 13:39 Physical Exam Vitals: Vital Signs Temp Pulse Pulse Resp BP BP Pulse Ox 03/29/21 08:29 39 L 03/29/21 07:27 97.3 F L 38 L 14 101/56 98 03/29/21 06:00 40 L 14 94/64 97 03/29/21 05:00 40 L 12 109/71 98 03/29/21 04:00 35 L 14 106/61 98 03/28/21 23:20 44 L 18 127/72 99 03/28/21 19:34 98.9 F 57 L 17 120/74 100 03/28/21 15:41 40 L 18 112/73 97 03/28/21 14:17 42 L 18 116/72 98 03/28/21 13:42 45 L 03/28/21 12:40 97.9 F 58 L 18 129/84 98 Intake and Output 03/28/21 03/29/21 03/29/21 22:59 06:59 14:59 Other: Weight 77.111 kg Results 03/28/21 13:08 03/28/21 13:08 Cardiac Enzymes 03/28/21 03/28/21 03/28/21 Range/Units 13:08 13:08 15:54 AST 50 (17-59) U/L Troponin I <0.012 <0.012 (0.000-0.034) ng/mL 03/28/21 Range/Units 19:01 AST (17-59) U/L Troponin I <0.012 (0.000-0.034) ng/mL Coagulation 03/28/21 Range/Units 13:08 PT 11.0 (9.0-12.0) sec APTT 22.9 (22.0-30.0) sec CBC 03/28/21 Range/Units 13:08 WBC 5.0 (3.8-10.6) k/uL RBC 4.97 (4.30-5.90) m/uL Hgb 16.0 (13.0-17.5) gm/dL Hct 46.4 (39.0-53.0) % Plt Count 237 (150-450) k/uL Comprehensive Metabolic Panel 03/28/21 Range/Units 13:08 Sodium 140 (137-145) mmol/L Potassium 4.5 (3.5-5.1) mmol/L Chloride 107 (98-107) mmol/L Carbon Dioxide 24 (22-30) mmol/L BUN 14 (9-20) mg/dL Creatinine 1.27 H (0.66-1.25) mg/dL Glucose 132 H (74-99) mg/dL Calcium 9.8 (8.4-10.2) mg/dL AST 50 (17-59) U/L ALT 68 H (4-49) U/L Alkaline Phosphatase 60 (38-126) U/L Total Protein 7.7 (6.3-8.2) g/dL Albumin 4.7 (3.5-5.0) g/dL Current Medications Generic Name Dose Route Start Last Admin Trade Name Freq PRN Reason Stop Dose Admin Aspirin 325 mg 03/29/21 09:00 Aspirin 325 Mg Tab PO DAILY CHARITO Sodium Chloride 1,000 mls @ 100 mls/hr 03/28/21 17:00 03/28/21 23:19 Saline 0.9% IV 100 mls/hr .Q10H CHARITO Administration Sodium Chloride 10 ml 03/28/21 21:00 03/28/21 23:19 Sodium Chloride 0.9% Flush 10 Ml Syringe IV 10 ml BID CHARITO Administration Intake and Output 03/28/21 03/29/21 03/29/21 22:59 06:59 14:59 Other: Weight 77.111 kg Patient Weight 03/30/21 06:59 Weight 77.111 kg 03/28/21 13:08 03/28/21 13:08
--- NOTE | 2021-03-29 17:16 | P.DS ---
Providers Date of admission: 03/28/21 14:09 Attending physician: Dina Burns Consults: 03/28/21 14:09 Consult Physician Urgent Consulting Provider: Adis Gabriel Consult Reason/Comments: bradycardia, cp Do you want consulting provider notified?: Yes Primary care physician: [facility] Course: 30-year-old male came in to he was sent from PCPs office for bradycardia. Patient also did complain of mild chest pressure like sensation which resolved at this time it's in the retrosternal area nonradiating not associated with food nonpleuritic. Patient didn't feel somewhat irregular and pounding sensation. Patient is found to have sinus bradycardia because of which patient was sent here. Patient had 2 EKGs with heart rates of 34 and 37 although they both of these are sinus bradycardia. Patient is a 30-year-old healthy muscular male, worksout on a regular basis patient had a history of IV heroin use in the past. EKG here did show sinus bradycardia as well. Patient is not symptomatic with this sinus bradycardia echocardiogram was ordered. Cardiology was consulted. 03/29/2021 Patient heart rate remained in the 40s and 50s. Patient is clinically doing well no further intervention cardiology evaluated the patient echocardiac exam normal limits patient will be discharged today. Patient will follow with cardiology as an outpatient. Patient will benefit from repeat the basic metabolic profile as his creatinine is 1.27 was probably because of his muscle mass although we need to make sure this is not going up as patient does use high-protein diet. PHYSICAL EXAMINATION: GENERAL: The patient is alert and oriented x3, not in any acute distress. Well developed, well nourished. HEENT: Pupils are round and equally reacting to light. EOMI. No scleral icterus. No conjunctival pallor. Normocephalic, atraumatic. No pharyngeal erythema. No thyromegaly. CARDIOVASCULAR: S1 and S2 present. No murmurs, rubs, or gallops. PULMONARY: Chest is clear to auscultation, no wheezing or crackles. ABDOMEN: Soft, nontender, nondistended, normoactive bowel sounds. No palpable organomegaly. MUSCULOSKELETAL: No joint swelling or deformity. EXTREMITIES: No cyanosis, clubbing, or pedal edema. NEUROLOGICAL: Gross neurological examination did not reveal any focal deficits. SKIN: No rashes. Assessment and Plan Plan: - chest pain: Atypical for cardiac pain -Sinus bradycardia asymptomatic normal echocardiogram no further intervention -Elevated creatinine: 1.27 creatinine is normal for the patient because of his muscle mass. -History of heroine use has been clean for more than 3 years, patient was tested for hepatitis C in the past and was negative. Plan - Discharge Summary Discharge Rx Participant: No New Discharge Prescriptions: No Action No Known Home Medications Discharge Medication List No Known Home Medications 03/28/21 [History] Follow up Appointment(s)/Referral(s): Cassidy Goodman MD [STAFF PHYSICIAN] - 2 Weeks (office will chayo pt with appointment. ) Negra Weldon MD [Primary Care Provider] - 1-2 days Discharge Disposition: HOME SELF-CARE
== END 2021-03-29 14:16 | disposition home or self-care (01) ==
LOC: EC 12:39 → 1SOBS 14:09 → 6NMEDSUR 19:42
PROVIDERS: ADMIT Internal Medicine; ATTEND Internal Medicine
DX: R07.2 Precordial pain (principal); R00.1 Bradycardia, unspecified; R00.2 Palpitations; Z20.822 Contact with and (suspected) exposure to COVID-19; Z86.59 Personal history of other mental and behavioral disorders; K51.90 Ulcerative colitis, unspecified, without complications; F17.290 Nicotine dependence, other tobacco product, uncomplicated; Z86.19 Personal history of other infectious and parasitic diseases
CPT/HCPCS: 96360; 96361; 99285; 36415; 93005; 93306; 84439; 84481; 80061; 80053; 82550; 83735; 84443; 84484; 85025; 85610; 85730; 87635; 71046; G0378 ×2

== ENCOUNTER → 2021-05-18 | Outpatient (CLI) | payer OTHER ==
[2021-05-18 14:06] LABS: Estradiol 42.6 pg/mL; Follicle Stimulating Hormone 6.7 mIU/mL; Luteinizing Hormone 8.3 mIU/mL; Prolactin 12.8 ng/mL (2.1-17.7)
== END | disposition home or self-care (01) ==
LOC: LABWHC1 07:45
PROVIDERS: ATTEND Internal Medicine
DX: R79.89 Other specified abnormal findings of blood chemistry (principal)
CPT/HCPCS: 36415; 82670; 83001; 83002; 84146; 84402

== ENCOUNTER 2021-09-12 17:57 | Emergency (ER) | payer OTHER ==
[2021-09-12 19:33] VITALS: RESP 18; TEMP 98.6
--- NOTE | 2021-09-12 20:59 | USB ---
EXAMINATION TYPE: US breast limited RT DATE OF EXAM: 09/12/2021 COMPARISON: NONE CLINICAL HISTORY: Mass. Palpable area posterior to the nipple. Scanned area of patient's concern posterior to the nipple and areas adjacent to the nipple. Right axi lla also imaged. *Limited EC exam. Hypoechoic area visualized posterior to the nipple measuring 0.5 x 0.5 x 0.2 cm. This is nonspecific and may be a duct debris. IMPRESSION: 1. Probably benign finding. 2. BI-RADS 3. Recommendations: 1. Clinical management of palpable region. 2. Short-term follow-up right breast ultrasound 3 months. 3. A negative ultrasound should not preclude biopsy of suspicious palpable abnormalities.
--- NOTE | 2021-09-12 21:09 | ED ---
General Adult HPI - General Chief complaint: Skin/Abscess/Foreign Body Stated complaint: Lump on right chest Time Seen by Provider: 09/12/21 19:44 Source: patient, RN notes reviewed, old records reviewed Mode of arrival: ambulatory Limitations: no limitations - History of Present Illness Initial comments: 31-year-old male with pain and swelling of the right breast. Patient is currently on intramuscular testosterone supplementation. He noted today a tender mass behind his right nipple. His been no drainage. No erythema. No fever. Patient is otherwise healthy. - Related Data Home Medications Medication Instructions Recorded Confirmed Pantoprazole Sodium [Protonix] 40 mg PO DAILY 09/12/21 09/12/21 Testosterone Cypionate 1 dose IM DIRECTED 09/12/21 09/12/21 [Depo-Testosterone] Allergies Allergy/AdvReac Type Severity Reaction Status Date / Time No Known Allergies Allergy Verified 09/12/21 19:33 Review of Systems ROS Statement: Those systems with pertinent positive or pertinent negative responses have been documented in the HPI. ROS Other: All systems not noted in ROS Statement are negative. Past Medical History Additional Past Medical History / Comment(s): Bradycardia, ulcerative colitis, rectal bleed, gastritis, proctitis. History of Any Multi-Drug Resistant Organisms: C-DIFF Date of last positivie culture/infection: 2010 Past Surgical History: No Surgical Hx Reported Additional Past Surgical History / Comment(s): 11/2020 EGD/colonoscopy Past Anesthesia/Blood Transfusion Reactions: No Reported Reaction Past Psychological History: No Psychological Hx Reported Smoking Status: Former smoker, Vaper Past Alcohol Use History: None Reported Past Drug Use History: None Reported - Past Family History Mother Family Medical History: Musculoskeletal Disorder, Neurologic Disorder, Renal Disease Additional Family Medical History / Comment(s): MS, CKD stage III Father History Unknown: Yes General Exam Limitations: no limitations General appearance: alert, in no apparent distress Head exam: Present: atraumatic, normocephalic Eye exam: Present: normal appearance, PERRL ENT exam: Present: normal exam Neck exam: Present: normal inspection. Absent: tenderness, meningismus Respiratory exam: Present: normal lung sounds bilaterally. Absent: respiratory distress, wheezes Cardiovascular Exam: Present: regular rate, normal rhythm GI/Abdominal exam: Present: soft. Absent: distended, tenderness, guarding Extremities exam: Present: normal inspection, normal capillary refill Neurological exam: Present: alert, oriented X3 Psychiatric exam: Present: normal affect, normal mood Skin exam: Present: warm, dry, other (There is a approximately 2 cm x 2 cm firm past behind the right nipple. There is no drainage, no overlying cellulitis or erythema. This is mobile.) Course Vital Signs 09/12/21 19:30 Temperature 98.6 F Pulse Rate 51 L Respiratory 18 Rate Blood Pressure 134/77 O2 Sat by Pulse 100 Oximetry Medical Decision Making - Medical Decision Making 31-year-old male with right breast mass. Ultrasound does confirm mass. This does not appear cystic or likely drainable abscess. The patient will require outpatient follow-up. He is given follow-up for breast surgery. He will monitor for signs of infection and return as needed. He will discontinue supplemental testosterone. Disposition Clinical Impression: Breast mass in male Disposition: HOME SELF-CARE Instructions (If sedation given, give patient instructions): Breast Mass (ED) Is patient prescribed a controlled substance at d/c from ED?: No Referrals: Negra Weldon MD [Primary Care Provider] - 1-2 days Mariah Quinonez MD [STAFF PHYSICIAN] - 1-2 days Time of Disposition: 21:09
[2021-09-12 21:45] VITALS: BP 128/77; PULSE 52
== END 2021-09-12 21:46 | disposition home or self-care (01) ==
LOC: EC 17:57
DX: N63.10 Unspecified lump in the right breast, unspecified quadrant (principal); Z87.891 Personal history of nicotine dependence; Z87.19 Personal history of other diseases of the digestive system
CPT/HCPCS: 99283

== ENCOUNTER 2021-09-14 22:04 | Emergency (ER) | payer OTHER ==
[2021-09-14 22:35] VITALS: BP 123/64; PULSE 64; RESP 16; TEMP 98.6
[2021-09-14] MEDS ORDERED: SULFAMETH-TMP DS STARTER PACK 2 TAB BTL PO STA (23:49)
--- NOTE | 2021-09-14 23:51 | ED ---
Skin/Abscess/FB HPI - General Chief complaint: Skin/Abscess/Foreign Body Stated complaint: sore on chest Time Seen by Provider: 09/14/21 23:29 Source: patient Mode of arrival: ambulatory Limitations: no limitations - History of Present Illness Initial comments: 31-year-old male patient presents to the emergency department today for evaluation of right breast lump with drainage from his nipple. Patient was evaluated for this in the emergency department within the last few days. Ultrasound was instructed to follow-up with breast surgeon. Patient states today he has felt that the area seems to be more hot and he noticed white fluid coming from around his areola. Patient reports tenderness over the area but no pain without touching it. Denies any fever or chills. Does report taking testosterone for the last couple of months. Denies any other medications. Does have an appointment with Dr. Quinonez breast surgery this month. - Related Data Home Medications Medication Instructions Recorded Confirmed Pantoprazole Sodium [Protonix] 40 mg PO DAILY 09/12/21 09/12/21 Testosterone Cypionate 1 dose IM DIRECTED 09/12/21 09/12/21 [Depo-Testosterone] Previous Rx's Medication Instructions Recorded Sulfamethoxazole/Trimethoprim 1 each PO BID #20 tablet 09/14/21 [Bactrim DS 800-160 mg] Allergies Allergy/AdvReac Type Severity Reaction Status Date / Time No Known Allergies Allergy Verified 09/14/21 22:31 Review of Systems ROS Statement: Those systems with pertinent positive or pertinent negative responses have been documented in the HPI. ROS Other: All systems not noted in ROS Statement are negative. Past Medical History Additional Past Medical History / Comment(s): Bradycardia, ulcerative colitis, rectal bleed, gastritis, proctitis. History of Any Multi-Drug Resistant Organisms: C-DIFF Date of last positivie culture/infection: 2010 Past Surgical History: No Surgical Hx Reported Additional Past Surgical History / Comment(s): 11/2020 EGD/colonoscopy Past Anesthesia/Blood Transfusion Reactions: No Reported Reaction Past Psychological History: No Psychological Hx Reported Smoking Status: Former smoker, Vaper Past Alcohol Use History: None Reported Past Drug Use History: None Reported - Past Family History Mother Family Medical History: Musculoskeletal Disorder, Neurologic Disorder, Renal Disease Additional Family Medical History / Comment(s): MS, CKD stage III Father History Unknown: Yes General Exam Limitations: no limitations General appearance: alert, in no apparent distress, other (This is a well- developed, well-nourished adult male patient in no acute distress.) Respiratory exam: Present: normal lung sounds bilaterally. Absent: respiratory distress, wheezes, rales, rhonchi, stridor Cardiovascular Exam: Present: regular rate, normal rhythm, normal heart sounds. Absent: systolic murmur, diastolic murmur, rubs, gallop, clicks Skin exam: Present: other (There is multiple right breast mass beneath the nipple approximately 2-3 cm in size. Unable to express any fluid from the nipple at this time. Skin is otherwise pink, warm, dry.) Course Vital Signs 09/14/21 22:31 Temperature 98.6 F Pulse Rate 64 Respiratory 16 Rate Blood Pressure 123/64 O2 Sat by Pulse 98 Oximetry Medical Decision Making - Medical Decision Making 31-year-old male patient presented to the emergency department today for evaluation of right breast lump with drainage from the nipple. Physical examination did reveal tenderness and 2-3 cm breast mass that is mobile. Unable to express fluid at this time. He is afebrile. We will give course of Bactrim for possibility of abscess. He does have an appointment coming up with the breast surgeon this month. He is instructed to keep this appointment. Return parameters were discussed in detail. He verbalizes understanding and agrees this plan. My attending is Dr. Villa. Disposition Clinical Impression: Breast mass, right, Nipple discharge in male Disposition: HOME SELF-CARE Condition: Good Instructions (If sedation given, give patient instructions): Breast Mass (ED), Nipple Discharge (ED) Additional Instructions: Complete antibiotic prescription in full. Follow-up with the breast surgeon as you have planned. Return for any new, worsening, or concerning symptoms. Prescriptions: Sulfamethoxazole/Trimethoprim [Bactrim DS 800-160 mg] 1 each PO BID #20 tablet Is patient prescribed a controlled substance at d/c from ED?: No Referrals: Negra Weldon MD [Primary Care Provider] - 1-2 days Time of Disposition: 23:50
== END 2021-09-15 00:13 | disposition home or self-care (01) ==
LOC: EC 22:04
DX: N63.10 Unspecified lump in the right breast, unspecified quadrant (principal); N64.52 Nipple discharge; Z87.891 Personal history of nicotine dependence; Z87.19 Personal history of other diseases of the digestive system
CPT/HCPCS: 99283

== ENCOUNTER 2022-06-12 11:29 | Emergency (ER) | payer OTHER ==
[2022-06-12 11:34] VITALS: RESP 18; TEMP 98.7
[2022-06-12] MEDS ORDERED: SODIUM CHLORIDE 0.9% 1,000 ML IV STA (13:03)
--- NOTE | 2022-06-12 13:04 | ED ---
General Adult HPI - General Chief complaint: Abdominal Pain Stated complaint: Abdominal Pain Time Seen by Provider: 06/12/22 12:58 Source: patient, RN notes reviewed, old records reviewed Mode of arrival: ambulatory Limitations: no limitations - History of Present Illness Initial comments: 31 old male presenting with diarrhea and crampy abdominal pain. Symptoms 7 present for the past 24 hours. No vomiting. No fever. He reports generalized abdominal discomfort associated with his diarrhea. Patient is otherwise healthy. No suspicious food or water. No blood in the diarrhea. - Related Data Home Medications Medication Instructions Recorded Confirmed No Known Home Medications 06/12/22 06/12/22 Allergies Allergy/AdvReac Type Severity Reaction Status Date / Time No Known Allergies Allergy Verified 06/12/22 13:25 Review of Systems ROS Statement: Those systems with pertinent positive or pertinent negative responses have been documented in the HPI. ROS Other: All systems not noted in ROS Statement are negative. Past Medical History Additional Past Medical History / Comment(s): Bradycardia, ulcerative colitis, rectal bleed, gastritis, proctitis. History of Any Multi-Drug Resistant Organisms: C-DIFF Date of last positivie culture/infection: 2010 Past Surgical History: No Surgical Hx Reported Additional Past Surgical History / Comment(s): 11/2020 EGD/colonoscopy Past Anesthesia/Blood Transfusion Reactions: No Reported Reaction Past Psychological History: No Psychological Hx Reported Smoking Status: Former smoker, Vaper Past Alcohol Use History: None Reported Past Drug Use History: None Reported - Past Family History Mother Family Medical History: Musculoskeletal Disorder, Neurologic Disorder, Renal Disease Additional Family Medical History / Comment(s): MS, CKD stage III Father History Unknown: Yes General Exam Limitations: no limitations General appearance: alert, in no apparent distress Head exam: Present: atraumatic, normocephalic Eye exam: Present: normal appearance, PERRL ENT exam: Present: normal exam Neck exam: Present: normal inspection. Absent: tenderness, meningismus Respiratory exam: Present: normal lung sounds bilaterally. Absent: respiratory distress, wheezes Cardiovascular Exam: Present: regular rate, normal rhythm GI/Abdominal exam: Present: soft. Absent: distended, tenderness, guarding, rebound, rigid Extremities exam: Present: normal inspection, normal capillary refill Neurological exam: Present: alert, oriented X3, CN II-XII intact. Absent: motor sensory deficit Psychiatric exam: Present: normal affect, normal mood Skin exam: Present: warm, dry, intact. Absent: cyanosis, diaphoretic, erythema Course Vital Signs 06/12/22 11:31 Temperature 98.7 F Pulse Rate 50 L Respiratory 18 Rate Blood Pressure 136/81 O2 Sat by Pulse 100 Oximetry Medical Decision Making - Medical Decision Making 31-year-old male with 24 hours of diarrheal illness, no vomiting no fever, no blood in the diarrhea. Patient well-appearing stable vitals he has normal CBC, CMP shows a creatinine 1.34 with baseline from one year ago of 1.27. Patient will maintain oral hydration. Return parameters discussed. - Lab Data Result diagrams: 06/12/22 13:10 06/12/22 13:10 Lab Results 06/12/22 06/12/22 Range/Units 13:10 13:10 WBC 4.0 (3.8-10.6) k/uL RBC 5.10 (4.30-5.90) m/uL Hgb 16.6 (13.0-17.5) gm/dL Hct 48.0 (39.0-53.0) % MCV 94.1 (80.0-100.0) fL MCH 32.5 (25.0-35.0) pg MCHC 34.6 (31.0-37.0) g/dL RDW 13.0 (11.5-15.5) % Plt Count 187 (150-450) k/uL MPV 8.4 Sodium 140 (137-145) mmol/L Potassium 4.6 (3.5-5.1) mmol/L Chloride 104 (98-107) mmol/L Carbon Dioxide 28 (22-30) mmol/L Anion Gap 8 mmol/L BUN 17 (9-20) mg/dL Creatinine 1.34 H (0.66-1.25) mg/dL Est GFR (CKD-EPI)AfAm 81 (>60 ml/min/1.73 sqM) Est GFR (CKD-EPI)NonAf 70 (>60 ml/min/1.73 sqM) Glucose 82 (74-99) mg/dL Calcium 9.2 (8.4-10.2) mg/dL Total Bilirubin 0.7 (0.2-1.3) mg/dL AST 39 (17-59) U/L ALT 26 (4-49) U/L Alkaline Phosphatase 53 (38-126) U/L Total Protein 7.3 (6.3-8.2) g/dL Albumin 4.4 (3.5-5.0) g/dL Amylase 44 (30-110) U/L Lipase 70 (23-300) U/L Disposition Clinical Impression: Diarrhea Disposition: HOME SELF-CARE Condition: Good Instructions (If sedation given, give patient instructions): Acute Diarrhea (ED) Is patient prescribed a controlled substance at d/c from ED?: No Referrals: Negra Weldon MD [Primary Care Provider] - 1-2 days Time of Disposition: 14:02
[2022-06-12 13:54] LABS: HGB 16.6 gm/dL (13.0-17.5); MCH 32.5 pg (25.0-35.0); MCHC 34.6 g/dL (31.0-37.0); MCV 94.1 fL (80.0-100.0); Mean Platelet Volume 8.4; Platelet Count 187 k/uL (150-450)
[2022-06-12 13:56] LABS: Albumin 4.4 g/dL (3.5-5.0); Potassium 4.6 mmol/L (3.5-5.1); Total Protein 7.3 g/dL (6.3-8.2)
[2022-06-12 13:57] LABS: Calcium 9.2 mg/dL (8.4-10.2); Total Bilirubin 0.7 mg/dL (0.2-1.3)
[2022-06-12 14:26] VITALS: BP 132/81; PULSE 52
[2022-06-12 14:33] LABS: Lymphocytes # (M) 1.12 k/uL (1.0-4.8); Neutrophils # (M) 2.08 k/uL (1.3-7.7); Neutrophils % (M) 52 %; Nucleated Red Blood Cells 0 /100 WBC (0-0); Total Cells Counted 100
== END 2022-06-12 14:27 | disposition home or self-care (01) ==
LOC: EC 11:29
DX: R19.7 Diarrhea, unspecified (principal); R10.9 Unspecified abdominal pain; Z87.891 Personal history of nicotine dependence; Z87.19 Personal history of other diseases of the digestive system
CPT/HCPCS: 36415; 80053; 82150; 83690; 85025; 96360; 99284

== ENCOUNTER 2024-07-25 16:00 | Emergency (ER) | payer OTHER ==
[2024-07-25 16:18] VITALS: RESP 20
[2024-07-25] MEDS: ACETAMINOPHEN TAB 500 MG TAB PO STA (16:39)
--- NOTE | 2024-07-25 16:39 | ED ---
General Adult HPI - General Chief complaint: Extremity Injury, Lower Stated complaint: R leg injury Time Seen by Provider: 07/25/24 16:21 Source: patient Mode of arrival: ambulatory Limitations: no limitations - History of Present Illness Initial comments: 33-year-old male presenting with chief complaint of right-sided posterior thigh pain. Patient was playing baseball and felt a pop and pulling sensation while he was running the bases. He is able to bear small amount of weight on the leg. He admits to a dull cramping bruise-like pain. Radiates up into the glutes. No radiation down the leg. He is able to do active extension but states that there is a great deal of pain. No numbness or tingling. - Related Data Home Medications Medication Instructions Recorded Confirmed No Known Home Medications 06/12/22 06/12/22 Allergies Allergy/AdvReac Type Severity Reaction Status Date / Time No Known Allergies Allergy Verified 06/12/22 13:25 Review of Systems ROS Statement: Those systems with pertinent positive or pertinent negative responses have been documented in the HPI. ROS Other: All systems not noted in ROS Statement are negative. Past Medical History Additional Past Medical History / Comment(s): Bradycardia, ulcerative colitis, rectal bleed, gastritis, proctitis. History of Any Multi-Drug Resistant Organisms: C-DIFF Date of last positivie culture/infection: 2010 Past Surgical History: No Surgical Hx Reported Additional Past Surgical History / Comment(s): 11/2020 EGD/colonoscopy Past Anesthesia/Blood Transfusion Reactions: No Reported Reaction Past Psychological History: No Psychological Hx Reported Smoking Status: Former smoker, Vaper Past Alcohol Use History: None Reported Past Drug Use History: None Reported - Past Family History Mother Family Medical History: Musculoskeletal Disorder, Neurologic Disorder, Renal Disease Additional Family Medical History / Comment(s): MS, CKD stage III Father History Unknown: Yes General Exam Limitations: no limitations General appearance: alert, in no apparent distress Head exam: Present: atraumatic, normocephalic Eye exam: Present: normal appearance, EOMI Neck exam: Present: normal inspection. Absent: meningismus Respiratory exam: Absent: respiratory distress Cardiovascular Exam: Present: regular rate Right Upper Leg exam: Present: tenderness. Absent: full ROM Neurovascular tendon exam: Present: no vascular compromise Neurological exam: Present: alert, oriented X3 Psychiatric exam: Present: normal affect, normal mood Skin exam: Present: warm, dry Course Vital Signs 07/25/24 16:16 Temperature 98.9 F Pulse Rate 100 Respiratory 20 Rate Blood Pressure 138/82 O2 Sat by Pulse 100 Oximetry Medical Decision Making - Medical Decision Making Was pt. sent in by a medical professional or institution (SHERI Karimi, SIGNAL OPERATOR, urgent care, hospital, or [facility]...) When possible be specific @ -No Did you speak to anyone other than the patient for history (EMS, parent, family, police, friend...)? What history was obtained from this source @ -No Did you review nursing and triage notes (agree or disagree)? Why? @ -I reviewed and agree with nursing and triage notes Were old charts reviewed (outside hosp., previous admission, EMS record, old EKG, old radiological studies, urgent care reports/EKG's, [facility] records)? Report findings @ -No old charts were reviewed Differential Diagnosis (chest pain, altered mental status, abdominal pain women, abdominal pain men, vaginal bleeding, weakness, fever, dyspnea, syncope, headache, dizziness, GI bleed, back pain, seizure, CVA, palpatations, mental health, musculoskeletal)? @ -Differential Musculoskeletal Muscular strain, contusion, ligament sprain, fracture, arthritis, septic arthritis, bursitis, cellulitis, muscle spasm, nerve compression, DVT, arterial occlusion, herpes zoster, electrolyte abnormality, tumor.... This is not meant to be in all inclusive list EKG interpreted by me (3pts min.). @ -As above X-rays interpreted by me (1pt min.). @ -X-ray shows no acute osseous abnormality seen. Possible osseous excrescence at the femoral head neck junction. Correlate for any chronic hip symptoms that could indicate femoral acetabular impingement syndrome CT interpreted by me (1pt min.). @ -None done U/S interpreted by me (1pt. min.). @ -None done What testing was considered but not performed or refused? (CT, X-rays, U/S, labs)? Why? @ -None What meds were considered but not given or refused? Why? @ -None Did you discuss the management of the patient with other professionals (professionals i.e. SHERI Karimi, SIGNAL OPERATOR, lab, RT, psych nurse, criminal justice social worker, solar sales associate, teacher, juvenile probation officer, telephonic nurse case manager)? Give summary @ -No Was smoking cessation discussed for >3mins.? @ -No Was critical care preformed (if so, how long)? @ -No Were there social determinants of health that impacted care today? How? (Homelessness, low income, unemployed, alcoholism, drug addiction, transportation, low edu. Level, literacy, decrease access to med. care, fpc, rehab)? @ -No Was there de-escalation of care discussed even if they declined (Discuss DNR or withdrawal of care, Hospice)? DNR status @ -No What co-morbidities impacted this encounter? (DM, HTN, Smoking, COPD, CAD, Cancer, CVA, ARF, Chemo, Hep., AIDS, mental health diagnosis, sleep apnea, morbid obesity)? @ -None Was patient admitted / discharged? Hospital course, mention meds given and rou te, prescriptions, significant lab abnormalities, going to OR and other pertinent info. @ -33-year-old male presenting with chief complaint of right-sided posterior thigh pain after running the bases at baseball. He felt a pop and a pulling sensation. On exam there is some tenderness to the posterior thigh. X-ray shows no acute osseous abnormality. Patient is placed in a knee immobilizer provided with crutches. Provided with orthopedic follow-up. Rest ice elevate Motrin and Tylenol advised. Discharged. Follow-up with PCP. Report back to ER with any new or worsening symptoms. Discussed return parameters and answered all questions. Patient conveyed verbal understanding and agreed to the plan. I discussed this case in detail with my attending Dr. Villa Undiagnosed new problem with uncertain prognosis? @ -No Drug Therapy requiring intensive monitoring for toxicity (Heparin, Nitro, Insulin, Cardizem)? @ -No Were any procedures done? @ -No Diagnosis/symptom? @ -Hamstring injury Acute, or Chronic, or Acute on Chronic? @ -Acute Uncomplicated (without systemic symptoms) or Complicated (systemic symptoms)? @ -uncomplicated Side effects of treatment? @ -No Exacerbation, Progression, or Severe Exacerbation? @ -No Poses a threat to life or bodily function? How? (Chest pain, [place], PR, pneumonia, PE, COPD, DKA, ARF, appy, cholecystitis, CVA, Diverticulitis, Homicidal, Sharma icidal, threat to staff... and all critical care pts) @ -Unlikely Disposition Clinical Impression: Hamstring injury Disposition: HOME SELF-CARE Condition: Good Instructions (If sedation given, give patient instructions): Hamstring Injury (ED) Additional Instructions: Follow-up with orthopedics. Report back to ER with any new or worsening symptoms. Do not return to sports until cleared by orthopedics. Take Motrin and Tylenol as needed for pain control. Rest ice and elevate the leg. Is patient prescribed a controlled substance at d/c from ED?: No Referrals: Negra Weldon MD [Primary Care Provider] - 1-2 days Familia Alex DO [Doctor of Osteopathic Medicine] - 1-2 days Time of Disposition: 17:10
[2024-07-25] MEDS: IBUPROFEN 800 MG TAB PO STA (16:40)
--- NOTE | 2024-07-25 17:03 | XR ---
EXAMINATION TYPE: XR femur 2 views RT DATE OF EXAM: 07/25/2024 Comparison: None Clinical History: 33-year-old male hamstring pain, right leg pain after playing baseball Findings: Hip and knee articulations appear grossly intact. There may be a small anterior femoral head neck yemi ction osseous excrescence. No acute fracture, subluxation, dislocation seen. No knee joint effusion. Impression: 1. No acute osseous abnormality seen. 2. Possible osseous excrescence at the femoral head neck junction. Correlate for any chronic hip symp toms that could indicate femoral acetabular impingement syndrome. [facility] 07/25/2024 4:59 PM [facility], , 07/25/2024 5:01 PM
[2024-07-25 17:47] VITALS: BP 128/86; PULSE 92; TEMP 98.4
== END 2024-07-25 17:46 | disposition home or self-care (01) ==
LOC: EC 16:00
CPT/HCPCS: 99283

== ENCOUNTER 2025-06-04 08:16 | Emergency (ER) | payer OTHER ==
[2025-06-04 08:23] VITALS: TEMP 97.8
--- NOTE | 2025-06-04 08:46 | ED ---
General Adult HPI - General Chief complaint: Abdominal Pain Stated complaint: abd pain Time Seen by Provider: 06/04/25 08:25 Source: patient, RN notes reviewed Mode of arrival: ambulatory Limitations: no limitations - History of Present Illness Initial comments: Patient is a 34-year-old male present to the emergency department with concerns with abdominal pain. Onset of symptoms was a month ago. Symptoms worse in the last couple of days. Patient has had nausea with some vomiting in the morning the last couple of days, nausea is near resolved at this time and patient does not want medication for it. No fever. No constipation or diarrhea. No history of similar symptoms previously. Discomfort is lower abdomen, more so on the sides. Patient has some discomfort of the lower abdomen as he urinates otherwise not dysuria. No testicle pain or swelling. - Related Data Previous Rx's Medication Instructions Recorded Doxycycline [Vibramycin] 100 mg PO BID #14 capsule 06/04/25 predniSONE [Deltasone] 20 mg PO BID #10 tab 06/04/25 Allergies Allergy/AdvReac Type Severity Reaction Status Date / Time No Known Allergies Allergy Verified 06/04/25 08:23 Review of Systems ROS Statement: Those systems with pertinent positive or pertinent negative responses have been documented in the HPI. ROS Other: All systems not noted in ROS Statement are negative. Constitutional: Denies: fever Eyes: Denies: eye pain ENT: Denies: ear pain Respiratory: Denies: dyspnea Cardiovascular: Denies: chest pain Gastrointestinal: Reports: as per HPI, abdominal pain, nausea, vomiting. Denies: diarrhea, constipation Musculoskeletal: Denies: back pain Past Medical History Additional Past Medical History / Comment(s): Bradycardia, ulcerative colitis, rectal bleed, gastritis, proctitis. History of Any Multi-Drug Resistant Organisms: C-DIFF Date of last positivie culture/infection: 2010 Past Surgical History: No Surgical Hx Reported Additional Past Surgical History / Comment(s): 11/2020 EGD/colonoscopy Past Anesthesia/Blood Transfusion Reactions: No Reported Reaction Past Psychological History: No Psychological Hx Reported Smoking Status: Former smoker, Vaper Past Alcohol Use History: None Reported Past Drug Use History: Marijuana - Past Family History Mother Family Medical History: Musculoskeletal Disorder, Neurologic Disorder, Renal Disease Additional Family Medical History / Comment(s): MS, CKD stage III Father History Unknown: Yes General Exam Limitations: no limitations General appearance: alert, in no apparent distress Head exam: Present: normocephalic Eye exam: Present: normal appearance Respiratory exam: Present: normal lung sounds bilaterally Cardiovascular Exam: Present: regular rate, normal rhythm GI/Abdominal exam: Present: soft, tenderness (Mild tenderness lower abdomen), normal bowel sounds. Absent: distended, guarding, rebound, rigid, pulsatile mass exam: Present: normal inspection. Absent: testicular tenderness, scrotal swelling Extremities exam: Present: normal inspection Neurological exam: Present: alert Psychiatric exam: Present: normal affect, normal mood Skin exam: Present: normal color Course Vital Signs 06/04/25 06/04/25 08:21 11:14 Temperature 97.8 F 97.8 F Pulse Rate 62 53 L Respiratory 20 18 Rate Blood Pressure 117/73 135/88 O2 Sat by Pulse 99 99 Oximetry Medical Decision Making - Medical Decision Making Was pt. sent in by a medical professional or institution (, PA, VEHICLE INSPECTOR, urgent care, hospital, or shelter...) When possible be specific @ -No Did you speak to anyone other than the patient for history (EMS, parent, family, police, friend...)? What history was obtained from this source @ -No Did you review nursing and triage notes (agree or disagree)? Why? @ -I reviewed and agree with nursing and triage notes Were old charts reviewed (outside hosp., previous admission, EMS record, old EKG, old radiological studies, urgent care reports/EKG's, shelter records)? Report findings @ -No old charts were reviewed Differential Diagnosis (chest pain, altered mental status, abdominal pain women, abdominal pain men, vaginal bleeding, weakness, fever, dyspnea, syncope, headache, dizziness, GI bleed, back pain, seizure, CVA, palpatations, mental health, musculoskeletal)? @ -Differential Abdominal Pain Men: Appendicitis, cholecystitis, diverticulosis, ischemic bowel, pancreatitis, hepatitis, UTI, gastroenteritis, AAA, incarcerated hernia, bowel obstruction, constipation, inflammatory bowel, hepatitis, peptic ulcer disease, splenic infarction, perforated viscus, testicular torsion, this is not meant to be an all-inclusive list EKG interpreted by me (3pts min.). @ -As above X-rays interpreted by me (1pt min.). @ -None done CT interpreted by me (1pt min.). @ -CT scan shows concern for lower colon colitis. Also concern for ileus and fluid pockets/cysts near pancreas U/S interpreted by me (1pt. min.). @ -None done What testing was considered but not performed or refused? (CT, X-rays, U/S, labs)? Why? @ -None What meds were considered but not given or refused? Why? @ -None Did you discuss the management of the patient with other professionals (professionals i.e. Dr., PA, VEHICLE INSPECTOR, lab, RT, psych nurse, licensed master social worker, hair clipper power, teacher, combat systems officer, returned case inspector)? Give summary @ -No Was smoking cessation discussed for >3mins.? @ -No Was critical care preformed (if so, how long)? @ -No Were there social determinants of health that impacted care today? How? (Homelessness, low income, unemployed, alcoholism, drug addiction, transportation, low edu. Level, literacy, decrease access to med. care, skilled nursing, rehab)? @ -No Was there de-escalation of care discussed even if they declined (Discuss DNR or withdrawal of care, Hospice)? DNR status @ -No What co-morbidities impacted this encounter? (DM, HTN, Smoking, COPD, CAD, Ca ncer, CVA, ARF, Chemo, Hep., AIDS, mental health diagnosis, sleep apnea, morbid obesity)? @ -History of colitis Was patient admitted / discharged? Hospital course, mention meds given and route, prescriptions, significant lab abnormalities, going to OR and other pertinent info. @ -Patient presents with abdominal discomfort. CT scan concerning for colitis. On reevaluation patient had discomfort, on second reevaluation patient is symptom-free and requesting discharge. Patient is updated on results and need for follow-up, specifically with GI Undiagnosed new problem with uncertain prognosis? @ -No Drug Therapy requiring intensive monitoring for toxicity (Heparin, Nitro, Insulin, Cardizem)? @ -No Were any procedures done? @ -No Diagnosis/symptom? @ -Colitis Acute, or Chronic, or Acute on Chronic? @ -Acute Uncomplicated (without systemic symptoms) or Complicated (systemic symptoms)? @ -Default Side effects of treatment? @ -No Exacerbation, Progression, or Severe Exacerbation? @ -No Poses a threat to life or bodily function? How? (Chest pain, [place], [place], pneumonia, PE, COPD, DKA, ARF, appy, cholecystitis, CVA, Diverticulitis, Homicidal, Suicidal, threat to staff... and all critical care pts) @ -Threat to bowel function - Lab Data Result diagrams: 06/04/25 08:47 06/04/25 08:47 Lab Results 06/04/25 06/04/25 06/04/25 Range/Units 08:47 08:47 08:47 WBC 7.14 (4.50-10.00) 10*3/uL RBC 5.03 (4.40-5.60) 10*6/uL Hgb 16.4 (13.0-17.0) g/dL Hct 46.9 (39.6-50.0) % MCV 93.2 (80.0-97.0) fL MCH 32.6 H (27.0-32.0) pg MCHC 35.0 (32.0-37.0) g/dL Plt Count 226 (140-440) 10*3/uL MPV 10.9 (9.5-12.2) fL Immature Gran % (Auto) 0.1 % Neutrophils % 78.0 % Lymphocytes % 14.4 % Monocytes % 5.9 % Eosinophils % 1.3 % Basophils % 0.3 % Immature Gran # 0.01 (0.00-0.04) 10*3/uL Neutrophils # 5.57 (1.80-7.70) 10*3/uL Lymphocytes # 1.03 (0.90-5.00) 10*3/uL Monocytes # 0.42 (0.20-1.00) 10*3/uL Eosinophils # 0.09 (0.04-0.35) 10*3/uL Basophils # 0.02 (0.00-0.10) 10*3/uL PT 10.9 (10.0-12.5) sec INR 1.0 (<1.2) APTT 24.6 (22.0-30.0) sec Sodium 140 (137-145) mmol/L Potassium 4.6 (3.5-5.1) mmol/L Chloride 107 (98-107) mmol/L Carbon Dioxide 21 L (22-30) mmol/L Anion Gap 12 mmol/L BUN 24 H (9-20) mg/dL Creatinine 1.43 H (0.66-1.25) mg/dL Est GFR (CKD-EPI)AfAm 73 (>60 ml/min/1.73 sqM) Est GFR (CKD-EPI)NonAf 63 (>60 ml/min/1.73 sqM) Glucose 95 (74-99) mg/dL Calcium 9.4 (8.4-10.2) mg/dL Total Bilirubin 0.8 (0.2-1.3) mg/dL AST 33 (17-59) U/L ALT 28 (4-49) U/L Alkaline Phosphatase 54 (38-126) U/L Total Protein 7.4 (6.3-8.2) g/dL Albumin 4.7 (3.5-5.0) g/dL Amylase 59 (30-110) U/L Lipase 297 (23-300) U/L Urine Color Urine Appearance (Clear) Urine pH (5.0-8.0) Ur Specific Hudson (1.001-1.035) Urine Protein (Negative) Urine Glucose (UA) (Negative) Urine Ketones (Negative) Urine Blood (Negative) Urine Nitrite (Negative) Urine Bilirubin (Negative) Urine Urobilinogen (<2.0) mg/dL Ur Leukocyte Esterase (Negative) 06/04/ Range/Units 08:47 WBC (4.50-10.00) 10*3/uL RBC (4.40-5.60) 10*6/uL Hgb (13.0-17.0) g/dL Hct (39.6-50.0) % MCV (80.0-97.0) fL MCH (27.0-32.0) pg MCHC (32.0-37.0) g/dL Plt Count (140-440) 10*3/uL MPV (9.5-12.2) fL Immature Gran % (Auto) % Neutrophils % % Lymphocytes % % Monocytes % % Eosinophils % % Basophils % % Immature Gran # (0.00-0.04) 10*3/uL Neutrophils # (1.80-7.70) 10*3/uL Lymphocytes # (0.90-5.00) 10*3/uL Monocytes # (0.20-1.00) 10*3/uL Eosinophils # (0.04-0.35) 10*3/uL Basophils # (0.00-0.10) 10*3/uL PT (10.0-12.5) sec INR (<1.2) APTT (22.0-30.0) sec Sodium (137-145) mmol/L Potassium (3.5-5.1) mmol/L Chloride (98-107) mmol/L Carbon Dioxide (22-30) mmol/L Anion Gap mmol/L BUN (9-20) mg/dL Creatinine (0.66-1.25) mg/dL Est GFR (CKD-EPI)AfAm (>60 ml/min/1.73 sqM) Est GFR (CKD-EPI)NonAf (>60 ml/min/1.73 sqM) Glucose (74-99) mg/dL Calcium (8.4-10.2) mg/dL Total Bilirubin (0.2-1.3) mg/dL AST (17-59) U/L ALT (4-49) U/L Alkaline Phosphatase (38-126) U/L Total Protein (6.3-8.2) g/dL Albumin (3.5-5.0) g/dL Amylase (30-110) U/L Lipase (23-300) U/L Urine Color Light Yellow Urine Appearance Clear (Clear) Urine pH 5.5 (5.0-8.0) Ur Specific [place] 1.033 (1.001-1.035) Urine Protein Negative (Negative) Urine Glucose (UA) Negative (Negative) Urine Ketones Trace H (Negative) Urine Blood Negative (Negative) Urine Nitrite Negative (Negative) Urine Bilirubin Negative (Negative) Urine Urobilinogen <2.0 (<2.0) mg/dL Ur Leukocyte Esterase Negative (Negative) Disposition Clinical Impression: Colitis Disposition: HOME SELF-CARE Condition: Stable Instructions (If sedation given, give patient instructions): Colitis (ED) Additional Instructions: Prescriptions have been sent to pharmacy. Please do follow-up with your primary care physician in the next couple of days for recheck, also follow-up with GI, number provided. Return for increased pain, fever, vomiting, worsening or changing symptoms or other concerns. Prescriptions: predniSONE [Deltasone] 20 mg PO BID #10 tab Doxycycline [Vibramycin] 100 mg PO BID #14 capsule Is patient prescribed a controlled substance at d/c from ED?: No Referrals: Negra Weldon MD [Primary Care Provider] - 1-2 days Bev Gabriel MD [STAFF PHYSICIAN] - 1-2 days Time of Disposition: 11:25
[2025-06-04 08:57] LABS: Basophils # (A) 0.02 10*3/uL (0.00-0.10); Basophils % (A) 0.3 %; Eosinophils # (A) 0.09 10*3/uL (0.04-0.35); Eosinophils % (A) 1.3 %; HCT 46.9 % (39.6-50.0); HGB 16.4 g/dL (13.0-17.0); Lymphocytes # (A) 1.03 10*3/uL (0.90-5.00); Lymphocytes % (A) 14.4 %; MCH 32.6 pg (27.0-32.0); MCHC 35.0 g/dL (32.0-37.0); MCV 93.2 fL (80.0-97.0); Monocytes # (A) 0.42 10*3/uL (0.20-1.00); Monocytes % (A) 5.9 %; Neutrophils # (A) 5.57 10*3/uL (1.80-7.70); Neutrophils % (A) 78.0 %; Platelet Count 226 10*3/uL (140-440); RBC 5.03 10*6/uL (4.40-5.60); RDW 12.7 % (11.5-14.5); WBC 7.14 10*3/uL (4.50-10.00)
[2025-06-04] MEDS: KETOROLAC 15 MG/ML 1 ML VIAL IVP STA (09:00)
[2025-06-04 09:06] LABS: Bilirubin,Urine Negative (Negative); Blood,Urine Negative (Negative); Color,Urine Light Yellow; Glucose,Urine (UA) Negative (Negative); Ketones,Urine Trace (Negative); Leukocyte Esterase,Urine Negative (Negative); Nitrite,Urine Negative (Negative); PH, Urine 5.5 (5.0-8.0); Protein,Urine Negative (Negative); Specific Gravity,Urine 1.033 (1.001-1.035); Urobilinogen,Urine <2.0 mg/dL (<2.0)
[2025-06-04 09:08] LABS: INR 1.0 (<1.2); Partial Thromboplastin Time 24.6 sec (22.0-30.0); Prothrombin Time 10.9 sec (10.0-12.5)
[2025-06-04] MEDS: ONDANSETRON 4 MG/2 ML VIAL IVP STA (09:08)
[2025-06-04 09:11] LABS: ALT 28 U/L (4-49); AST 33 U/L (17-59); African American GFR (CKD) 73 (>60 ml/min/1.73 sqM); Albumin 4.7 g/dL (3.5-5.0); Alkaline Phosphatase 54 U/L (38-126); Amylase 59 U/L (30-110); Anion Gap 12 mmol/L; Blood Urea Nitrogen 24 mg/dL (9-20); Calcium 9.4 mg/dL (8.4-10.2); Carbon Dioxide 21 mmol/L (22-30); Chloride 107 mmol/L (98-107); Glucose 95 mg/dL (74-99); Lipase 297 U/L (23-300); Non-African American GFR(CKD) 63 (>60 ml/min/1.73 sqM); Potassium 4.6 mmol/L (3.5-5.1); Sodium 140 mmol/L (137-145); Total Protein 7.4 g/dL (6.3-8.2)
--- NOTE | 2025-06-04 10:09 | CT ---
EXAMINATION TYPE: CT abdomen pelvis w con DATE OF EXAM: 06/04/2025 9:29 AM COMPARISON: None. CLINICAL INDICATION: Male, 34 years old with history of abdominal pain; bilateral groin pain for a mo nth/nausea TECHNIQUE: CT of the abdomen and pelvis after IV contrast. Delayed images through the kidneys and sag ittal and coronal reformats were created on a separate workstation. Contrast used:100 mL of Isovue 300 with IV Contrast, CT DLP: 690.4 mGycm, Automated exposure control for dose reduction was used. FINDINGS: LOWER CHEST: Unremarkable ABDOMEN LIVER: Mildly enlarged measuring 18.1 cm. Punctate 4 mm hypodensity left liver lobe likely tiny cysts . Portal venous system is patent. GALLBLADDER AND BILE DUCTS: Unremarkable. PANCREAS: Unremarkable. However, there are a couple thin-walled locules of fluid located anterior to the tail the pancreas measuring 2.8 x 2.0 cm and along the anterior inferior aspect of the pancreatic body measuring 2.6 x 7.6 cm (coronal image 23 and axial image 28). Exact etiology is unclear. The pa ncreas otherwise shows no gross abnormality. SPLEEN: Tiny anterior splenule. ADRENAL GLANDS: Unremarkable. KIDNEYS AND URETERS: No evidence of hydronephrosis or renal calculus. The ureters are unremarkable. PELVIS BLADDER: No evidence for wall thickening or mass given limitations of exam. REPRODUCTIVE: Unremarkable. ABDOMEN & PELVIS STOMACH AND BOWEL: No evidence of bowel obstruction. Some prominent fluid filled small bowel loops lo wer abdomen and pelvis. Normal appendix. There is sigmoid diverticulosis. There is circumferential wa ll thickening distal sigmoid and rectum and diverticular change here along with perirectal and anuja lonic fat stranding no free fluid or free air is seen. PERITONEUM/RETROPERITONEUM: No evidence of pneumoperitoneum or free fluid. VASCULATURE: No evidence of aortic aneurysm. MUSCULOSKELETAL: Mild degenerative change of the hips. Transitional lumbosacral segment. LYMPH NODES: No gross evidence for lymphadenopathy. SOFT TISSUE/ABDOMINAL WALL: Unremarkable IMPRESSION: 1. Wall thickening and surrounding inflammation distal sigmoid colon and rectum. There is some diver ticular change present. Findings suggest a nonspecific distal colitis/proctitis versus acute divertic ulitis. Mild to moderate inflammation without abscess or free air. 2. Prominent fluid-filled small bowel loops lower abdomen and pelvis may reflect a concurrent ileus o r enteritis. 3. A couple thin walled locules of mesenteric fluid in the peripancreatic region and left upper quadr ant measuring up to 7.6 x 2.6 cm. Unclear if this represents chronic pseudocyst formation as a sequel a of prior pancreatitis or other etiology such as congenital mesenteric cysts or lymphangiomas. Corre late with patient's history and consider 6-12 month follow-up to reassess. [facility], , 06/04/2025 10:07 AM
[2025-06-04] MEDS: HYDROmorphone 1 MG/ML 1 ML SYRINGE IVP STA (10:31)
[2025-06-04 11:16] VITALS: BP 135/88; PULSE 53; RESP 18
== END 2025-06-04 11:34 | disposition home or self-care (01) ==
LOC: EC 08:16
DX: K52.9 Noninfective gastroenteritis and colitis, unspecified (principal); F17.290 Nicotine dependence, other tobacco product, uncomplicated
CPT/HCPCS: 36415; 80053; 82150; 83690; 85025; 85610; 85730; 81003; 74177; 99284; 96374; 96375 ×2; J2405; J1171; J1885; Q9967

== ENCOUNTER 2025-06-05 10:30 | Inpatient (IN) | payer OTHER ==
[2025-06-05 11:01] LABS: Glucose,Whole Blood 136 mg/dL (70-110)
[2025-06-05] MEDS: ONDANSETRON 4 MG/2 ML VIAL IVP STA ×2 (11:07→12:42)
[2025-06-05] MEDS: HYDROmorphone 1 MG/ML 1 ML SYRINGE IVP STA ×2 (11:09→12:41)
--- NOTE | 2025-06-05 11:11 | ED ---
General Adult HPI - General Chief complaint: Abdominal Pain Stated complaint: Abd pain Time Seen by Provider: 06/05/25 10:32 Source: patient, RN notes reviewed Mode of arrival: ambulatory Limitations: no limitations - History of Present Illness Initial comments: Patient is a 34-year-old male presenting to the emergency department with concerns with abdominal discomfort. Onset of symptoms was close to a month ago, worse the past few days. Patient was in the emergency department with similar symptoms yesterday and did fine when he left however symptoms returned this morning. Patient has associated nausea vomiting. Patient has diffuse abdominal discomfort, mostly lower abdomen. No constipation or diarrhea. No fever. - Related Data Previous Rx's Medication Instructions Recorded Doxycycline [Vibramycin] 100 mg PO BID #14 capsule 06/04/25 predniSONE [Deltasone] 20 mg PO BID #10 tab 06/04/25 Allergies Allergy/AdvReac Type Severity Reaction Status Date / Time No Known Allergies Allergy Verified 06/05/25 10:35 Review of Systems ROS Statement: Those systems with pertinent positive or pertinent negative responses have been documented in the HPI. ROS Other: All systems not noted in ROS Statement are negative. Constitutional: Denies: fever Eyes: Denies: eye pain ENT: Denies: ear pain Respiratory: Denies: dyspnea Cardiovascular: Denies: chest pain Gastrointestinal: Reports: as per HPI, abdominal pain, nausea, vomiting Genitourinary: Denies: dysuria Musculoskeletal: Denies: back pain Past Medical History Additional Past Medical History / Comment(s): Bradycardia, ulcerative colitis, rectal bleed, gastritis, proctitis. History of Any Multi-Drug Resistant Organisms: C-DIFF Date of last positivie culture/infection: 2010 Past Surgical History: No Surgical Hx Reported Additional Past Surgical History / Comment(s): 11/2020 EGD/colonoscopy Past Anesthesia/Blood Transfusion Reactions: No Reported Reaction Past Psychological History: No Psychological Hx Reported Smoking Status: Former smoker, Vaper Past Alcohol Use History: None Reported Past Drug Use History: Marijuana - Past Family History Mother Family Medical History: Musculoskeletal Disorder, Neurologic Disorder, Renal Disease Additional Family Medical History / Comment(s): MS, CKD stage III Father History Unknown: Yes General Exam Limitations: no limitations General appearance: alert Eye exam: Present: normal appearance ENT exam: Present: normal oropharynx Neck exam: Present: normal inspection Respiratory exam: Present: normal lung sounds bilaterally Cardiovascular Exam: Present: regular rate, normal rhythm GI/Abdominal exam: Present: soft, tenderness (Mild to moderate abdominal discomfort, more lower), normal bowel sounds. Absent: distended, guarding, rebound, rigid, pulsatile mass Extremities exam: Present: normal inspection Neurological exam: Present: alert Skin exam: Present: normal color Course Vital Signs 06/05/25 06/05/25 10:33 10:43 Temperature 98.7 F 97.6 F Pulse Rate 60 50 L Respiratory 20 22 Rate Blood Pressure 138/82 183/119 O2 Sat by Pulse 99 100 Oximetry Medical Decision Making - Medical Decision Making Was pt. sent in by a medical professional or institution (, PA, FLYING I INSTRUCTOR, urgent care, hospital, or custodial...) When possible be specific @ -No Did you speak to anyone other than the patient for history (EMS, parent, family, police, friend...)? What history was obtained from this source @ -No Did you review nursing and triage notes (agree or disagree)? Why? @ -I reviewed and agree with nursing and triage notes Were old charts reviewed (outside hosp., previous admission, EMS record, old EKG, old radiological studies, urgent care reports/EKG's, custodial records)? Report findings @ -Chart and CT scan from yesterday reviewed Differential Diagnosis (chest pain, altered mental status, abdominal pain women, abdominal pain men, vaginal bleeding, weakness, fever, dyspnea, syncope, he adache, dizziness, GI bleed, back pain, seizure, CVA, palpatations, mental health, musculoskeletal)? @ -Differential Abdominal Pain Men: Appendicitis, cholecystitis, diverticulosis, ischemic bowel, pancreatitis, hepatitis, UTI, gastroenteritis, AAA, incarcerated hernia, bowel obstruction, constipation, inflammatory bowel, hepatitis, peptic ulcer disease, splenic infarction, perforated viscus, testicular torsion, this is not meant to be an all-inclusive list EKG interpreted by me (3pts min.). @ -As above X-rays interpreted by me (1pt min.). @ -Abdominal x-ray without acute abnormality CT interpreted by me (1pt min.). @ -None done U/S interpreted by me (1pt. min.). @ -None done What testing was considered but not performed or refused? (CT, X-rays, U/S, labs)? Why? @ -None What meds were considered but not given or refused? Why? @ -None Did you discuss the management of the patient with other professionals (professionals i.e. DrBrendan, PA, FLYING I INSTRUCTOR, lab, RT, psych nurse, psychiatric social worker, mushroom packer, teacher, parking control officer, embedded case manager)? Give summary @ -[facility] Dr. Poon will admit covering Dr. Pleitez Was smoking cessation discussed for >3mins.? @ -No Was critical care preformed (if so, how long)? @ -No Were there social determinants of health that impacted care today? How? (Homelessness, low income, unemployed, alcoholism, drug addiction, transportation, low edu. Level, literacy, decrease access to med. care, shelter, rehab)? @ -No Was there de-escalation of care discussed even if they declined (Discuss DNR or withdrawal of care, Hospice)? DNR status @ -No What co-morbidities impacted this encounter? (DM, HTN, Smoking, COPD, CAD, Cancer, CVA, ARF, Chemo, Hep., AIDS, mental health diagnosis, sleep apnea, morbid obesity)? @ -History of ulcerative colitis Was patient admitted / discharged? Hospital course, mention meds given and route, prescriptions, significant lab abnormalities, going to OR and other pertinent info. @ -Patient presents with abdominal discomfort, return visit from yesterday. Symptoms have returned. On reevaluation patient still has discomfort and keshia sea. Patient will be admitted. Patient updated. Admission orders written. Undiagnosed new problem with uncertain prognosis? @ -No Drug Therapy requiring intensive monitoring for toxicity (Heparin, Nitro, Insulin, Cardizem)? @ -No Were any procedures done? @ -No Diagnosis/symptom? @ -Colitis Acute, or Chronic, or Acute on Chronic? @ -Acute Uncomplicated (without systemic symptoms) or Complicated (systemic symptoms)? @ -Default Side effects of treatment? @ -No Exacerbation, Progression, or Severe Exacerbation? @ -No Poses a threat to life or bodily function? How? (Chest pain, [place], [place], pneumonia, PE, COPD, DKA, ARF, appy, cholecystitis, CVA, Diverticulitis, Homicidal, Suicidal, threat to staff... and all critical care pts) @ -Threat to bowel function - Lab Data Result diagrams: 06/05/25 11:03 06/05/25 11:03 Lab Results 06/05/25 06/05/25 06/05/25 Range/Units 11:00 11:03 11:03 WBC 12.77 H (4.50-10.00) 10*3/uL RBC 5.63 H (4.40-5.60) 10*6/uL Hgb 18.5 H (13.0-17.0) g/dL Hct 51.8 H (39.6-50.0) % MCV 92.0 (80.0-97.0) fL MCH 32.9 H (27.0-32.0) pg MCHC 35.7 (32.0-37.0) g/dL Plt Count 290 (140-440) 10*3/uL MPV 11.0 (9.5-12.2) fL Immature Gran % (Auto) 0.3 % Neutrophils % 82.0 % Lymphocytes % 13.7 % Monocytes % 3.9 % Eosinophils % 0.0 % Basophils % 0.1 % Immature Gran # 0.04 (0.00-0.04) 10*3/uL Neutrophils # 10.47 H (1.80-7.70) 10*3/uL Lymphocytes # 1.75 (0.90-5.00) 10*3/uL Monocytes # 0.50 (0.20-1.00) 10*3/uL Eosinophils # 0.00 L (0.04-0.35) 10*3/uL Basophils # 0.01 (0.00-0.10) 10*3/uL PT 11.4 (10.0-12.5) sec INR 1.0 (<1.2) APTT 23.9 (22.0-30.0) sec Sodium (137-145) mmol/L Potassium (3.5-5.1) mmol/L Chloride (98-107) mmol/L Carbon Dioxide (22-30) mmol/L Anion Gap mmol/L BUN (9-20) mg/dL Creatinine (0.66-1.25) mg/dL Est GFR (CKD-EPI)AfAm (>60 ml/min/1.73 sqM) Est GFR (CKD-EPI)NonAf (>60 ml/min/1.73 sqM) Glucose (74-99) mg/dL POC Glucose (mg/dL) 136 H (70-110) mg/dL POC Glu [employer] ID Toya Lundberg Calcium (8.4-10.2) mg/dL Total Bilirubin (0.2-1.3) mg/dL AST (17-59) U/L ALT (4-49) U/L Alkaline Phosphatase (38-126) U/L Total Protein (6.3-8.2) g/dL Albumin (3.5-5.0) g/dL Amylase (30-110) U/L Lipase (23-300) U/L // Range/Units 11:03 WBC (4.50-10.00) 10*3/uL RBC (4.40-5.60) 10*6/uL Hgb (13.0-17.0) g/dL Hct (39.6-50.0) % MCV (80.0-97.0) fL MCH (27.0-32.0) pg MCHC (32.0-37.0) g/dL Plt Count (140-440) 10*3/uL MPV (9.5-12.2) fL Immature Gran % (Auto) % Neutrophils % % Lymphocytes % % Monocytes % % Eosinophils % % Basophils % % Immature Gran # (0.00-0.04) 10*3/uL Neutrophils # (1.80-7.70) 10*3/uL Lymphocytes # (0.90-5.00) 10*3/uL Monocytes # (0.20-1.00) 10*3/uL Eosinophils # (0.04-0.35) 10*3/uL Basophils # (0.00-0.10) 10*3/uL PT (10.0-12.5) sec INR (<1.2) APTT (22.0-30.0) sec Sodium 142 (137-145) mmol/L Potassium 4.9 (3.5-5.1) mmol/L Chloride 104 (98-107) mmol/L Carbon Dioxide 23 (22-30) mmol/L Anion Gap 15 mmol/L BUN 22 H (9-20) mg/dL Creatinine 1.24 (0.66-1.25) mg/dL Est GFR (CKD-EPI)AfAm 87 (>60 ml/min/1.73 sqM) Est GFR (CKD-EPI)NonAf 75 (>60 ml/min/1.73 sqM) Glucose 132 H (74-99) mg/dL POC Glucose (mg/dL) (70-110) mg/dL POC Glu [employer] ID Calcium 10.7 H (8.4-10.2) mg/dL Total Bilirubin 0.8 (0.2-1.3) mg/dL AST 33 (17-59) U/L ALT 31 (4-49) U/L Alkaline Phosphatase 75 (38-126) U/L Total Protein 8.8 H (6.3-8.2) g/dL Albumin 5.4 H (3.5-5.0) g/dL Amylase 60 (30-110) U/L Lipase 109 (23-300) U/L Disposition Clinical Impression: Colitis Disposition: ADMITTED IP TO THIS HOSP Is patient prescribed a controlled substance at d/c from ED?: No Referrals: Negra Weldon MD [Primary Care Provider] - 1-2 days Time of Disposition: 12:03
[2025-06-05] MEDS: FAMOTIDINE 20 MG/2 ML VIAL IV STA (11:13)
[2025-06-05] MEDS: LACTATED RINGERS 1,000 ML IV SCH (11:16)
[2025-06-05 11:17] LABS: Basophils # (A) 0.01 10*3/uL (0.00-0.10); Basophils % (A) 0.1 %; Eosinophils # (A) 0.00 10*3/uL (0.04-0.35); Eosinophils % (A) 0.0 %; HCT 51.8 % (39.6-50.0); HGB 18.5 g/dL (13.0-17.0); Lymphocytes # (A) 1.75 10*3/uL (0.90-5.00); Lymphocytes % (A) 13.7 %; MCH 32.9 pg (27.0-32.0); MCHC 35.7 g/dL (32.0-37.0); MCV 92.0 fL (80.0-97.0); Monocytes # (A) 0.50 10*3/uL (0.20-1.00); Monocytes % (A) 3.9 %; Neutrophils # (A) 10.47 10*3/uL (1.80-7.70); Neutrophils % (A) 82.0 %; Platelet Count 290 10*3/uL (140-440); RBC 5.63 10*6/uL (4.40-5.60); RDW 12.3 % (11.5-14.5); WBC 12.77 10*3/uL (4.50-10.00)
[2025-06-05 11:27] LABS: INR 1.0 (<1.2); Partial Thromboplastin Time 23.9 sec (22.0-30.0); Prothrombin Time 11.4 sec (10.0-12.5)
[2025-06-05 11:33] LABS: ALT 31 U/L (4-49); AST 33 U/L (17-59); African American GFR (CKD) 87 (>60 ml/min/1.73 sqM); Albumin 5.4 g/dL (3.5-5.0); Alkaline Phosphatase 75 U/L (38-126); Amylase 60 U/L (30-110); Anion Gap 15 mmol/L; Blood Urea Nitrogen 22 mg/dL (9-20); Calcium 10.7 mg/dL (8.4-10.2); Carbon Dioxide 23 mmol/L (22-30); Chloride 104 mmol/L (98-107); Glucose 132 mg/dL (74-99); Lipase 109 U/L (23-300); Non-African American GFR(CKD) 75 (>60 ml/min/1.73 sqM); Potassium 4.9 mmol/L (3.5-5.1); Sodium 142 mmol/L (137-145); Total Protein 8.8 g/dL (6.3-8.2)
--- NOTE | 2025-06-05 11:43 | XR ---
EXAMINATION TYPE: XR KUB DATE OF EXAM: 06/05/2025 11:35 AM COMPARISON: None. CLINICAL INDICATION: Male, 34 years old with history of abdominal pain, TECHNIQUE: Single view of the abdomen. FINDINGS: Small bowel demonstrates no evidence for dilatation or air fluid levels. Gas and fecal material is seen in non-distended colon. No convincing evidence for pneumoperitoneum. No unusual calcifications. The lung bases are clear. The osseous structures are intact. IMPRESSION: 1. Overall nonobstructive bowel gas pattern. [facility], , 06/05/2025 11:41 AM
[2025-06-05] MEDS ORDERED: NALOXONE 0.4 MG/ML 1 ML VIAL IV PRN (12:03)
[2025-06-05] MEDS: ONDANSETRON 4 MG/2 ML VIAL IVP PRN (12:26)
[2025-06-05] MEDS: HYDROmorphone 1 MG/ML 1 ML SYRINGE IVP PRN (12:30)
[2025-06-05] MEDS: PANTOPRAZOLE 40 MG/10 ML VIAL IV SCH ×2 (12:33→22:20)
[2025-06-05] MEDS: methylPREDNISolone SOD SUCCI 125 MG/2 ML VIAL IV SCH (12:34)
[2025-06-05] MEDS: PIPERACILLIN-TAZOBACTAM 3.375 GM in SODIUM CHLORIDE 0.9% 100 ML IVPB SCH (13:03)
[2025-06-05] MEDS: SODIUM CHLORIDE 0.9% 1,000 ML IV SCH (13:04)
[2025-06-05] MEDS: hydrALAZINE HCL 20 MG/ML 1 ML VIAL IVP PRN (16:15)
[2025-06-05] MEDS: HEPARIN SODIUM,PORCINE 5,000 UNIT/ML 1 ML VIAL SQ SCH (22:21)
--- NOTE | 2025-06-06 00:08 | HP ---
HISTORY AND PHYSICAL CHIEF COMPLAINT: Abdominal pain, nausea, vomiting, and ulc colitis. HISTORY OF PRESENT ILLNESS: This 34-year-old gentleman with a past medical history of multiple medical problems including ulcerative colitis, proctitis, bradycardia, C diff, was complaining of abdominal pain, which started about a month ago. The patient also started nausea and vomiting for the last couple of days. The patient came to the ER yesterday because of lack of improvement. The patient came back again. The patient admitted for evaluation and treatment. Yesterday's CAT scan showed abdomen and pelvis showed wall thickening surrounding inflammation of the distal sigmoid colon and the rectum and as well as some diverticular changes also, prominent fluid-filled small bowel loops also noted. There is no history of fever or rigors. PAST MEDICAL HISTORY: Reviewed. Include bradycardia, ulcerative colitis, gastritis, proctitis. Rest of the chart is also reviewed. HOME MEDICATIONS: Reviewed. Include prednisone and doxycycline. Doses and the rest of medications reviewed. ALLERGIES: None. FAMILY HISTORY: MS and chronic kidney disease. SOCIAL HISTORY: History of THC. REVIEW OF SYSTEMS: 14-point review of systems negative except as mentioned earlier. PHYSICAL EXAMINATION: VITAL SIGNS: Pulse is 50, blood pressure ntd, respirations 20. HEENT: Conjunctivae normal. CARDIOVASCULAR: S1, S2. RESPIRATION: Breath sounds diminished at the bases. LEGS: No edema. No cyanosis. NERVOUS SYSTEM: Diffusely weak. LABORATORY DATA: WBC 12.7. ASSESSMENT: 1. Abdominal pain, nausea, vomiting, possibly ulcerative colitis, acute exacerbation with failure of outpatient treatment. 2. Accelerated hypertension. 3. Increased WBC. 4. Bradycardia history. 5. History of gastritis and proctitis. 6. History of Clostridium difficile. 7. History of vaping. 8. Multiple complex medical issues. RECOMMENDATION: This 34-year-old gentleman presented with multiple complex medical issues. We will monitor the patient closely. Continue the current medications, symptomatic treatment. I would recommend intravenous steroids, IV antibiotics, cautious fluids, control the blood pressure. Overall prognosis guarded because of multiple complex medical issues. This patient requires a full admit because of the above-mentioned multiple complex medical issues. Further recommendations to follow. See orders for details. MMODL / IJN: [id number] / MTDD
[2025-06-06 09:44] LABS: Basophils # (A) 0.01 X 10*3/uL (0.00-0.10); Basophils % (A) 0.1 %; Eosinophils # (A) 0 X 10*3/uL (0.04-0.35); Eosinophils % (A) 0 %; HCT 46.2 % (39.6-50.0); HGB 16.1 g/dL (13.0-17.0); Immature Grans, Automated 0.30 %; Lymphocytes # (A) 0.87 X 10*3/uL (0.90-5.00); Lymphocytes % (A) 7.3 %; MCH 32.6 pg (27.0-32.0); MCHC 34.8 g/dL (32.0-37.0); MCV 93.5 FL (80.0-97.0); Monocytes # (A) 0.40 X 10*3/uL (0.20-1.00); Monocytes % (A) 3.3 %; NRBC Per 100 WBC 0 X 10*3/uL (0.00-0.01); Neutrophils # (A) 10.68 X 10*3/uL (1.80-7.70); Neutrophils % (A) 89.0 %; Platelet Count 249 X 10*3/uL (140-440); RBC 4.94 X 10*6/uL (4.40-5.60); RDW 12.7 % (11.5-14.5); WBC 12.00 X 10*3/uL (4.50-10.00)
[2025-06-06 09:55] LABS: BUN/Creat Ratio 13.77 Ratio (12.00-20.00); Blood Urea Nitrogen 17.9 mg/dL (9.0-27.0); Chloride 103 mmol/L (96-109); Glucose 130 mg/dL (70-110); Potassium 4.8 mmol/L (3.5-5.5); Sodium 135 mmol/L (135-145)
[2025-06-06 09:56] LABS: ALT 28 U/L (10-49); AST 26 U/L (14-35); Albumin 4.5 g/dL (3.8-4.9); Albumin/Globulin Ratio 2.05 Ratio (1.60-3.17); Alkaline Phosphatase 69 U/L (41-126); Anion Gap 10.40 mmol/L (4.00-12.00); Calcium 9.5 mg/dL (8.7-10.3); Carbon Dioxide 21.6 mmol/L (21.6-31.8); Globulin 2.2 g/dL (1.6-3.3); Total Protein 6.7 g/dL (6.2-8.2)
[2025-06-06] MEDS: HYDROmorphone 0.5 MG/0.5 ML SYRINGE IVP PRN (12:31)
--- NOTE | 2025-06-06 13:06 | P.GSCN ---
History of Present Illness Consult date: 06/06/25 Reason for Consult: Colitis History of present illness: This is a 34-year-old male who was admitted to hospital with complaints of abdominal pain. His CAT scan is suggestive of sigmoid colon colitis as well as a possible 7 cm pancreatic pseudocyst. Patient states he has had colitis in the past. Past Medical History Additional Past Medical History / Comment(s): Bradycardia, ulcerative colitis, rectal bleed, gastritis, proctitis. History of Any Multi-Drug Resistant Organisms: C-DIFF Year Discovered:: 2010 MDRO Source:: stool Past Surgical History: No Surgical Hx Reported Additional Past Surgical History / Comment(s): 11/2020 EGD/colonoscopy Past Anesthesia/Blood Transfusion Reactions: No Reported Reaction Past Psychological History: No Psychological Hx Reported Additional Psychological History / Comment(s): Pt resides with roommates. He is independent. Smoking Status: Never smoker Past Alcohol Use History: None Reported Additional Past Alcohol Use History / Comment(s): Pt smoked cigarettes from 2000 until 2017. Stopped vaping 3 months ago. Past Drug Use History: Marijuana - Past Family History Mother Family Medical History: Musculoskeletal Disorder, Neurologic Disorder, Renal Disease Additional Family Medical History / Comment(s): MS, CKD stage III Father History Unknown: Yes Medications and Allergies Home Medications Medication Instructions Recorded Confirmed Type Doxycycline [Vibramycin] 100 mg PO BID #14 capsule 06/04/25 06/05/25 Rx predniSONE [Deltasone] 20 mg PO BID #10 tab 06/04/25 06/05/25 Rx Allergies Allergy/AdvReac Type Severity Reaction Status Date / Time No Known Allergies Allergy Verified 06/05/25 12:17 Surgical - Exam Vital Signs Temp Pulse Resp BP Pulse Ox 98.7 F 60 20 138/82 99 06/05/25 10:33 06/05/25 10:33 06/05/25 10:33 06/05/25 10:33 06/05/25 10:33 - General well developed, well nourished, no distress - Eyes PERRL - ENT normal pinna - Neck no masses - Respiratory normal expansion - Cardiovascular Rhythm: regular - Abdomen Mild diffuse tenderness throughout Abdomen: soft Results - Labs 06/06/25 03:48 06/06/25 03:48 Abnormal Lab Results - Last 24 Hours (Table) 06/06/25 06/06/25 Range/Units 03:48 03:48 WBC 12.00 H (4.50-10.00) X 10*3/uL MCH 32.6 H (27.0-32.0) pg Neutrophils # 10.68 H (1.80-7.70) X 10*3/uL Lymphocytes # 0.87 L (0.90-5.00) X 10*3/uL Eosinophils # 0 L (0.04-0.35) X 10*3/uL Glucose 130 H (70-110) mg/dL Diabetes panel 06/06/25 Range/Units 03:48 Sodium 135 (135-145) mmol/L Potassium 4.8 (3.5-5.5) mmol/L Chloride 103 (96-109) mmol/L Carbon Dioxide 21.6 (21.6-31.8) mmol/L BUN 17.9 (9.0-27.0) mg/dL Creatinine 1.3 (0.6-1.5) mg/dL Glucose 130 H (70-110) mg/dL Calcium 9.5 (8.7-10.3) mg/dL AST 26 (14-35) U/L ALT 28 (10-49) U/L Alkaline Phosphatase 69 (41-126) U/L Total Protein 6.7 (6.2-8.2) g/dL Albumin 4.5 (3.8-4.9) g/dL Calcium panel 06/06/25 Range/Units 03:48 Calcium 9.5 (8.7-10.3) mg/dL Albumin 4.5 (3.8-4.9) g/dL Pituitary panel 06/06/25 Range/Units 03:48 Sodium 135 (135-145) mmol/L Potassium 4.8 (3.5-5.5) mmol/L Chloride 103 (96-109) mmol/L Carbon Dioxide 21.6 (21.6-31.8) mmol/L BUN 17.9 (9.0-27.0) mg/dL Creatinine 1.3 (0.6-1.5) mg/dL Glucose 130 H (70-110) mg/dL Calcium 9.5 (8.7-10.3) mg/dL Adrenal panel 06/06/25 Range/Units 03:48 Sodium 135 (135-145) mmol/L Potassium 4.8 (3.5-5.5) mmol/L Chloride 103 (96-109) mmol/L Carbon Dioxide 21.6 (21.6-31.8) mmol/L BUN 17.9 (9.0-27.0) mg/dL Creatinine 1.3 (0.6-1.5) mg/dL Glucose 130 H (70-110) mg/dL Calcium 9.5 (8.7-10.3) mg/dL Total Bilirubin 0.7 (0.3-1.2) mg/dL AST 26 (14-35) U/L ALT 28 (10-49) U/L Alkaline Phosphatase 69 (41-126) U/L Total Protein 6.7 (6.2-8.2) g/dL Albumin 4.5 (3.8-4.9) g/dL Assessment and Plan Plan: Colitis. Patient will continue receive IV antibiotics. We will follow with you.
[2025-06-06] MEDS: metroNIDAZOLE-NS PMX 500 MG in SALINE 1 100ML.BAG IVPB SCH (15:47)
[2025-06-06] MEDS: ONDANSETRON 4 MG/2 ML VIAL IVP PRN (15:48)
--- NOTE | 2025-06-06 16:10 | XR ---
EXAMINATION TYPE: XR chest 1V portable DATE OF EXAM: 06/06/2025 4:05 PM COMPARISON: Prior chest radiograph 03/28/2021. CLINICAL INDICATION: Male, 34 years old with history of chf; [facility] TECHNIQUE: XR chest 1V portable Frontal view of the chest. FINDINGS: Lungs/Pleura: There is no evidence of pleural effusion, focal consolidation, or pneumothorax. Pulmonary vascularity: Unremarkable. Heart/mediastinum: Cardiomediastinal silhouette is unremarkable. Musculoskeletal: No acute osseous pathology. Other findings: None IMPRESSION: No acute cardiopulmonary disease/process. [facility], , 06/06/2025 4:08 PM
--- NOTE | 2025-06-06 16:28 | PN ---
PROGRESS NOTE DATE OF SERVICE: 06/06/2025 SUBJECTIVE: This 34-year-old gentleman who was admitted with ulcerative colitis exacerbation. He is complaining of severe abdominal pain. The patient also complained of nausea and vomiting also. Surgery has seen the patient. Recommend the patient to keep n.p.o. and continue with the IV antibiotics and steroids also. The patient possibly also had a 7 cm pancreatic pseudocyst also. PAST MEDICAL HISTORY: Reviewed. REVIEW OF SYSTEMS: A 14-point review of systems negative except as mentioned earlier. CURRENT MEDICATIONS: Reviewed. PHYSICAL EXAMINATION: VITAL SIGNS: Pulse is 58, blood pressure 134/70, and respirations 17. HEENT: Conjunctivae normal. NECK: No jugular venous distention. CARDIOVASCULAR: S1, S2. RESPIRATION: Breath sounds diminished at the bases. Few scattered rhonchi. ABDOMEN: Soft. Mild diffuse discomfort. LABORATORY DATA: Noted. ASSESSMENT: 1. Abdominal pain, nausea, vomiting, possibly ulcerative colitis acute exacerbation, failure of outpatient treatment. 2. Accelerated hypertension. 3. Increased WBC. 4. Bradycardia history. 5. History of gastritis and proctitis. 6. History of Clostridium difficile colitis. 7. History of vaping. 8. Multiple complex medical issues. RECOMMENDATIONS: Recommend to continue current management and continue symptomatic treatment. Otherwise recommend the patient to keep n.p.o., symptomatic treatment, IV antibiotics as initiated. We would add Flagyl to the current regimen and IV steroids. Pain management. Guarded prognosis, because of multiple complex medical issues. Further recommendations to follow. See orders for details. MMODL / IJN: [id number] /
[2025-06-06] MEDS: HYDROcodone/APAP 5-325MG 1 EACH TAB PO PRN (20:34)
[2025-06-07 10:02] LABS: Basophils # (A) 0.01 10*3/uL (0.00-0.10); Basophils % (A) 0.1 %; Eosinophils # (A) 0.00 10*3/uL (0.04-0.35); Eosinophils % (A) 0.0 %; HCT 44.0 % (39.6-50.0); HGB 15.6 g/dL (13.0-17.0); Lymphocytes # (A) 0.42 10*3/uL (0.90-5.00); Lymphocytes % (A) 3.6 %; MCH 33.0 pg (27.0-32.0); MCHC 35.5 g/dL (32.0-37.0); MCV 93.0 fL (80.0-97.0); Monocytes # (A) 0.28 10*3/uL (0.20-1.00); Monocytes % (A) 2.4 %; Neutrophils # (A) 11.05 10*3/uL (1.80-7.70); Neutrophils % (A) 93.4 %; Platelet Count 238 10*3/uL (140-440); RBC 4.73 10*6/uL (4.40-5.60); RDW 12.5 % (11.5-14.5); WBC 11.82 10*3/uL (4.50-10.00)
--- NOTE | 2025-06-07 13:00 | P.CONS ---
History of Present Illness - Reason for Consult Consult date: 06/07/25 Colitis Requesting physician: Mac Poon - Chief Complaint Abdominal pain - History of Present Illness This a pleasant 34-year-old male who presented to the emergency department yesterday with complaints of severe abdominal pain with nausea and vomiting. Patient states that he had's been having abdominal pain for over a month now states that he will wake up with the pain and then he will have some nausea and vomiting. States the pain has gotten worse over the last couple days duration he feels that it is all over his abdomen shooting into his groin. States the p ain is so bad that it makes him vomit. States that his normal bowel pattern is about 3 bowel movements a day but lately he is feeling a little bit more constipated. States his bowel movements have been formed there is no blood in them. He had a CT of the abdomen pelvis showing wall thickening of the distal sigmoid colon and rectum. Gastroenterology was consulted for colitis. States that he was diagnosed with ulcerative colitis many years ago but that he then had a EGD and colonoscopy in [address] Pena and he states that he was told that his colon looked normal EGD showed gastritis so he figured that his ulcerative colitis was gone. Patient was admitted with leukocytosis denies any fever or chills. He was started on Zosyn and Flagyl as well as IV Solu-Medrol 60 mg every 6 hours. States abdominal pain has improved some but the minute that he starts to eat or drink anything he gets severe abdominal pain then he throws everything up. Review of Systems REVIEW OF SYSTEMS: CARDIOPULMONARY: No chest pain or shortness of breath. Gastrointestinal: Abdominal pain. Nausea and vomiting. No hematemesis, coffee-ground emesis. No diarrhea. No rectal bleeding, or melena. GENITOURINARY: No dysuria or hematuria. MUSCULOSKELETAL: Reports normal range of motion. SKIN: No rashes. No jaundice. ENDOCRINE: No chills, fevers. No excessive weight gain or loss. No polydipsia or polyuria. PSYCHIATRIC: Unremarkable. NEUROLOGY: No change in mental status. Denies dizziness, headache. ENT: Vision unremarkable. CONSTITUTIONAL: No recent weight loss. No fever, chills, night sweats. Past Medical History Additional Past Medical History / Comment(s): Bradycardia, ulcerative colitis, rectal bleed, gastritis, proctitis. History of Any Multi-Drug Resistant Organisms: C-DIFF Year Discovered:: 2010 MDRO Source:: stool Past Surgical History: No Surgical Hx Reported Additional Past Surgical History / Comment(s): 11/2020 EGD/colonoscopy Past Anesthesia/Blood Transfusion Reactions: No Reported Reaction Past Psychological History: No Psychological Hx Reported Additional Psychological History / Comment(s): Pt resides with roommates. He is independent. Smoking Status: Never smoker Past Alcohol Use History: None Reported Additional Past Alcohol Use History / Comment(s): Pt smoked cigarettes from 2000 until 2017. Stopped vaping 3 months ago. Past Drug Use History: Marijuana - Past Family History Mother Family Medical History: Musculoskeletal Disorder, Neurologic Disorder, Renal Disease Additional Family Medical History / Comment(s): MS, CKD stage III Father History Unknown: Yes Medications and Allergies Home Medications Medication Instructions Recorded Confirmed Type Doxycycline [Vibramycin] 100 mg PO BID #14 capsule 06/04/25 06/05/25 Rx predniSONE [Deltasone] 20 mg PO BID #10 tab 06/04/25 06/05/25 Rx Allergies Allergy/AdvReac Type Severity Reaction Status Date / Time No Known Allergies Allergy Verified 06/05/25 12:17 Physical Exam Vitals: Vital Signs Temp Pulse Resp BP Pulse Ox 06/07/25 07:10 97.6 F 49 L 17 143/71 97 06/07/25 02:00 98.0 F 98 17 107/55 96 06/07/25 01:00 98 17 06/06/25 20:00 98.5 F 66 17 134/71 96 06/06/25 13:01 98.6 F 58 L 17 134/71 96 Intake and Output 06/06/25 06/07/25 06/07/25 22:59 06:59 14:59 Other: Voiding Method Toilet # Voids 4 3 General appearance: The patient is alert, oriented, appears in no acute distress. HET: Head is normocephalic and atraumatic. Conjunctiva pink. Sclera anicteric. Neck: Supple without lymphadenopathy. Trachea midline. Heart: Regular. Lungs: Equal expansion, normal respiratory effort. Abdomen: Soft, thin, diffuse tenderness, nondistended. Skin: No rashes. No jaundice. Extremities: Normal skin color and turgor. No pedal edema. Neurological: No focal deficits. Alert and oriented x3. Results CBC & Chem 7: 06/07/25 09:13 06/06/25 03:48 Labs: Abnormal Lab Results - Last 24 Hours (Table) 06/06/25 06/06/25 Range/Units 03:48 03:48 WBC 12.00 H (4.50-10.00) X 10*3/uL MCH 32.6 H (27.0-32.0) pg Neutrophils # 10.68 H (1.80-7.70) X 10*3/uL Lymphocytes # 0.87 L (0.90-5.00) X 10*3/uL Eosinophils # 0 L (0.04-0.35) X 10*3/uL Glucose 130 H (70-110) mg/dL Microbiology - Last 24 Hours (Table) 06/05/25 13:05 Blood Culture - Preliminary Blood Comments: CT abdomen pelvis with contrast from 06/04/2025 reports wall thickening and surrounding inflammation distal sigmoid colon and rectum. There is some diverticular change present. Findings suggest a nonspecific distal colitis/proctitis versus acute diverticulitis. Mild to moderate inflammation without abscess or free air. Prominent fluid-filled small bowel loops lower abdomen and pelvis may reflect a concurrent ileus or enteritis. Couple thin walled locules of mesenteric fluid in the peripancreatic region and left upper quadrant measuring up to 7.6 x 2.6 cm. Unclear if this represents chronic pseudocyst formation as a sequela of prior pancreatitis or other etiology such as congenital mesenteric cyst or lymphangioma. Correlate with patient's history and consider 6 to 12-month follow-up to reassess. Assessment and Plan (1) Colitis Narrative/Plan: 34-year-old male with reported history of ulcerative colitis not on any current treatment and reported no flareups in multiple years presents with abdominal pain and CT evidence of inflammation in the sigmoid colon and rectum. Unclear if patient has true diagnosis is of ulcerative colitis states he was diagnosed many years ago by colonoscopy but most recent EGD colonoscopy in 2020 with colonoscopy reporting mild proctitis and EGD gastritis. However biopsy results negative for any inflammatory bowel disease. Consider possible inflammatory versus infectious colitis continue antibiotics at this time. CRP sed rate ordered. Current Visit: Yes Status: Acute Code(s): K52.9 - NONINFECTIVE GASTROENTERITIS AND COLITIS, UNSPECIFIED SNOMED Code(s): 83273977 (2) Abdominal pain Current Visit: Yes Status: Acute Code(s): R10.9 - UNSPECIFIED ABDOMINAL PAIN SNOMED Code(s): 11432061 (3) Pancreatic cyst Narrative/Plan: Unclear etiology, no history of previous pancreatitis. Outpatient follow-up, can repeat further imaging with CT or MRI at that time. Current Visit: Yes Status: Acute Code(s): K86.2 - CYST OF PANCREAS SNOMED Code(s): 84018064 Plan: 1. Continue symptomatic and supportive care 2. Keep n.p.o. except for ice chips 3. CRP and sed rate ordered 4. Continue antibiotics as ordered 5. Will decrease steroid dosing 6. Antiemetics as needed 7. Protonix 40 mg daily for GI prophylaxis 8. Pain medication as needed 9. Further recommendations forthcoming based on clinical course Thank you for this consultation, we will continue to follow. Dr. Sara Gabriel I agree with the dictator's note, documented as a scribe by Jazlyn Yadav.
--- NOTE | 2025-06-07 14:33 | P.PN ---
Subjective Progress Note Date: 06/07/25 SURGICAL PROGRESS NOTE CHIEF COMPLAINT: Abdominal pain HISTORY OF PRESENT ILLNESS: Patient continues to have abdominal pain. He reports there is a little less pressure. Pain is located bilateral sides. He is having diarrhea. He denies any blood in his stools. Does have a known past history of possible ulcerative colitis and C. difficile colitis. Last colonoscopy 3 years ago. Afebrile. WBC 12-11.82 PHYSICAL EXAM: VITAL SIGNS: Reviewed. GENERAL: Well-developed in no acute distress. ABDOMEN: Soft. Nondistended. Tenderness mostly on the right and left lower sides. NEUROLOGIC: Alert and oriented. Cranial nerves II through XII grossly intact. ASSESSMENT: 1. Colitis PLAN: - Continue antibiotics - Currently off of steroids - Plan for colonoscopy on with Dr. Ann Physician Typesetter Perforator Operator note has been reviewed by physician. Signing provider agrees with the documented findings, assessment, and plan of care. Objective - Vital Signs Vital signs: Vital Signs Temp 97.6 F 06/07/25 07:10 Pulse 49 L 06/07/25 07:10 Resp 17 06/07/25 07:10 BP 143/71 06/07/25 07:10 Pulse Ox 97 06/07/25 07:10 FiO2 Intake & Output 06/06/25 06/07/25 06/07/25 18:59 06:59 18:59 Other: Voiding Method Toilet Toilet # Voids 4 3 2 # Bowel Movements 1 - Labs CBC & Chem 7: 06/07/25 09:13 06/06/25 03:48 Labs: Abnormal Lab Results - Last 24 Hours (Table) 06/07/25 Range/Units 09:13 WBC 11.82 H (4.50-10.00) 10*3/uL MCH 33.0 H (27.0-32.0) pg Immature Gran # 0.06 H (0.00-0.04) 10*3/uL Neutrophils # 11.05 H (1.80-7.70) 10*3/uL Lymphocytes # 0.42 L (0.90-5.00) 10*3/uL Eosinophils # 0.00 L (0.04-0.35) 10*3/uL Microbiology - Last 24 Hours (Table) 06/05/25 13:05 Blood Culture - Preliminary Blood
[2025-06-07] MEDS ORDERED: methylPREDNISolone SOD SUCCI 40 MG/ML 1 ML VIAL IV SCH (16:00)
[2025-06-07 16:38] VITALS: BMI 24.3
[2025-06-07 21:06] LABS: Bilirubin,Urine Negative (Negative); Blood,Urine Negative (Negative); Color,Urine Yellow; Glucose,Urine (UA) Trace (Negative); Ketones,Urine Trace (Negative); Leukocyte Esterase,Urine Negative (Negative); Nitrite,Urine Negative (Negative); PH, Urine 6.0 (5.0-8.0); Protein,Urine Negative (Negative); Specific Gravity,Urine 1.042 (1.001-1.035); Urobilinogen,Urine <2.0 mg/dL (<2.0)
[2025-06-07 21:22] LABS: Barbiturate Screen,Urine Not Detected (NotDetected); Benzodiazepines Screen,Urine Not Detected (NotDetected); Opiate Screen,Urine Detected (NotDetected); Oxycodone Screen, Urine Not Detected (NotDetected); Phencyclidine Screen,Urine Not Detected (NotDetected); Tricyclic Antidepressant,Urine Not Detected (NotDetected); Urn Cannabinoid Scrn Detected (NotDetected)
[2025-06-08 08:27] LABS: Basophils # (A) 0.01 X 10*3/uL (0.00-0.10); Basophils % (A) 0.1 %; Eosinophils # (A) 0 X 10*3/uL (0.04-0.35); Eosinophils % (A) 0 %; HCT 43.8 % (39.6-50.0); HGB 14.6 g/dL (13.0-17.0); Immature Grans, Automated 0.30 %; Lymphocytes # (A) 1.39 X 10*3/uL (0.90-5.00); Lymphocytes % (A) 13.8 %; MCH 31.2 pg (27.0-32.0); MCHC 33.3 g/dL (32.0-37.0); MCV 93.6 FL (80.0-97.0); Monocytes # (A) 0.79 X 10*3/uL (0.20-1.00); Monocytes % (A) 7.9 %; NRBC Per 100 WBC 0 X 10*3/uL (0.00-0.01); Neutrophils # (A) 7.84 X 10*3/uL (1.80-7.70); Neutrophils % (A) 77.9 %; Platelet Count 234 X 10*3/uL (140-440); RBC 4.68 X 10*6/uL (4.40-5.60); RDW 12.6 % (11.5-14.5); WBC 10.06 X 10*3/uL (4.50-10.00)
[2025-06-08 09:25] LABS: ALT 22 U/L (10-49); AST 15 U/L (14-35); Albumin 3.9 g/dL (3.8-4.9); Albumin/Globulin Ratio 2.17 Ratio (1.60-3.17); Alkaline Phosphatase 57 U/L (41-126); Anion Gap 9.10 mmol/L (4.00-12.00); BUN/Creat Ratio 16.86 Ratio (12.00-20.00); Blood Urea Nitrogen 23.6 mg/dL (9.0-27.0); Calcium 8.6 mg/dL (8.7-10.3); Carbon Dioxide 23.9 mmol/L (21.6-31.8); Chloride 103 mmol/L (96-109); Globulin 1.8 g/dL (1.6-3.3); Glucose 98 mg/dL (70-110); Potassium 4.2 mmol/L (3.5-5.5); Sodium 136 mmol/L (135-145); Total Protein 5.7 g/dL (6.2-8.2)
--- NOTE | 2025-06-08 12:17 | P.PN ---
Subjective Progress Note Date: 06/08/25 Principal diagnosis: Abdominal pain, colitis This a pleasant 34-year-old male who presented to the emergency department yesterday with complaints of severe abdominal pain with nausea and vomiting. Patient states that he had's been having abdominal pain for over a month now states that he will wake up with the pain and then he will have some nausea and vomiting. States the pain has gotten worse over the last couple days duration he feels that it is all over his abdomen shooting into his groin. States the pain is so bad that it makes him vomit. States that his normal bowel pattern is about 3 bowel movements a day but lately he is feeling a little bit more constipated. States his bowel movements have been formed there is no blood in them. He had a CT of the abdomen pelvis showing wall thickening of the distal sigmoid colon and rectum. Gastroenterology was consulted for colitis. States that he was diagnosed with ulcerative colitis many years ago but that he then had a EGD and colonoscopy in [address] Pena and he states that he was told that his colon looked normal EGD showed gastritis so he figured that his ulcerative colitis was gone. Patient was admitted with leukocytosis denies any fever or chills. He was started on Zosyn and Flagyl as well as IV Solu-Medrol 60 mg every 6 hours. States abdominal pain has improved some but the minute that he starts to eat or drink anything he gets severe abdominal pain then he throws everything up. 06/08/2025 Patient is seen and examined today as a follow-up. States abdominal pain is a little bit better today. He reports he does get a lot of cramping during bowel movement. Still has decreased appetite some nausea but no vomiting. He is having more diarrhea states he had 3 loose bowel movements from yesterday evening and through this morning. No blood in his stool. Leukocytosis improving. Sed rate and CRP both normal. Patient's been afebrile. Objective - Vital Signs Vital signs: Vital Signs Temp 97.9 F 06/08/25 07:00 Pulse 42 L 06/08/25 07:00 Resp 15 06/08/25 07:00 BP 124/73 06/08/25 07:00 Pulse Ox 96 06/08/25 07:00 FiO2 Intake & Output 07/28/25 07/29/25 07/29/25 18:59 06:59 18:59 Output Total 1 Balance -1 Weight 77.111 kg Output: Urine 1 Other: Voiding Method Toilet # Voids 1 # Bowel Movements 1 - Exam General appearance: The patient is alert, oriented, appears in no acute distress. HET: Head is normocephalic and atraumatic. Conjunctiva pink. Sclera anicteric. Neck: Supple without lymphadenopathy. Abdomen: Soft, nontender, nondistended. Extremities: Normal skin color and turgor. No pedal edema Skin: No rashes, no jaundice Neurological: No focal deficits. Alert and oriented. - Labs CBC & Chem 7: 06/08/25 03:38 06/08/25 03:38 Labs: Abnormal Lab Results - Last 24 Hours (Table) 06/07/25 06/07/25 06/08/25 Range/Units 09:13 15:42 03:38 WBC 11.82 H 10.06 H (4.50-10.00) 10*3/uL MCH 33.0 H (27.0-32.0) pg Immature Gran # 0.06 H (0.00-0.04) 10*3/uL Neutrophils # 11.05 H 7.84 H (1.80-7.70) 10*3/uL Lymphocytes # 0.42 L (0.90-5.00) 10*3/uL Eosinophils # 0.00 L 0 L (0.04-0.35) 10*3/uL Ur Specific [place] 1.042 H (1.001-1.035) Urine Glucose (UA) Trace H (Negative) Urine Ketones Trace H (Negative) Urine Opiates Screen Detected H (NotDetected) U Marijuana (THC) Screen Detected H (NotDetected) Microbiology - Last 24 Hours (Table) 06/05/25 13:05 Blood Culture - Preliminary Blood Assessment and Plan (1) Colitis Narrative/Plan: 34-year-old male with reported history of ulcerative colitis not on any current treatment and reported no flareups in multiple years presents with abdominal pain and CT evidence of inflammation in the sigmoid colon and rectum. Unclear if patient has true diagnosis is of ulcerative colitis states he was diagnosed many years ago by colonoscopy but most recent EGD colonoscopy in 2020 with colonoscopy reporting mild proctitis and EGD gastritis. However biopsy results negative for any inflammatory bowel disease. Likely dealing with infectious colitis/diverticulitis, CRP and sed rate normal. Continue IV antibiotics. Current Visit: Yes Status: Acute Code(s): K52.9 - NONINFECTIVE GASTROENTERITIS AND COLITIS, UNSPECIFIED SNOMED Code(s): 52359428 (2) Abdominal pain Current Visit: Yes Status: Acute Code(s): R10.9 - UNSPECIFIED ABDOMINAL PAIN SNOMED Code(s): 30708453 (3) Pancreatic cyst Narrative/Plan: Unclear etiology, no history of previous pancreatitis. Outpatient follow-up, can repeat further imaging with CT or MRI at that time. Current Visit: Yes Status: Acute Code(s): K86.2 - CYST OF PANCREAS SNOMED Code(s): 29491132 Plan: 1. Continue symptomatic and supportive care 2. May have clear liquid diet, advance as tolerated 3. Pain medication as needed 4. Continue antibiotics as ordered 5. Steroids were discontinued 6. Antiemetics as needed 7. Protonix 40 mg daily for GI prophylaxis 8. Stool for C. difficile ordered and collected 9. Colonoscopy not recommended at this time. Patient can follow-up as an outpatient for colonoscopy in 4 to 6 weeks 10. Further recommendations forthcoming based on clinical course Thank you for this consultation, we will continue to follow. Dr. Sara Gabriel I agree with the dictator's note, documented as a scribe by Jazlyn Yadav.
--- NOTE | 2025-06-08 12:49 | PN ---
PROGRESS NOTE DATE OF SERVICE: 06/07/2025 SUBJECTIVE: This 34-year-old gentleman, who was admitted with abdominal pain, nausea, possible ulcerative colitis acute exacerbation, is being closely monitored and GI is following the patient closely. PHYSICAL EXAMINATION: VITAL SIGNS: Pulse is 49, blood pressure 140/70, and respirations 17. CHEST: Clear to auscultation. CARDIOVASCULAR: S1, S2. ABDOMEN: Soft, mild diffuse tenderness. No guarding. No rigidity. LABORATORY DATA: Noted. ASSESSMENT: 1. Abdominal pain, nausea, vomiting, possible ulcerative colitis, acute exacerbation with failure of outpatient treatment. 2. Accelerated hypertension. 3. Increased WBC. 4. Bradycardia history. 5. History of gastritis and proctitis. 6. History of Clostridioides difficile colitis. 7. History of vaping. 8. Multiple complex medical issues. RECOMMENDATIONS: Recommend to continue current management and continue symptomatic treatment. Otherwise, I would recommend to continue with current medications and continue with the antibiotics and further recommendations to follow. MMODL / IJN: [id number] / MTDD
--- NOTE | 2025-06-08 13:12 | P.PN ---
Subjective Progress Note Date: 06/08/25 SURGICAL PROGRESS NOTE CHIEF COMPLAINT: Abdominal pain HISTORY OF PRESENT ILLNESS: Patient reporting a decrease in abdominal pain. No vomiting. He did have 3 episodes of diarrhea during the night. No blood in the stools. Afebrile. WBC 10.06 Hgb 14.6 PHYSICAL EXAM: VITAL SIGNS: Reviewed. GENERAL: Well-developed in no acute distress. ABDOMEN: Soft. Nondistended. Mild diffuse tenderness NEUROLOGIC: Alert and oriented. Cranial nerves II through XII grossly intact. ASSESSMENT: 1. Colitis PLAN: -Patient scheduled for colonoscopy with Dr. Ann -Start GoLytely bowel prep tomorrow -Start clear liquid diet tomorrow -Continue antibiotics Physician Sheet Metal Contractor note has been reviewed by physician. Signing provider agrees with the documented findings, assessment, and plan of care. Objective - Vital Signs Vital signs: Vital Signs Temp 97.9 F 06/08/25 07:00 Pulse 42 L 06/08/25 07:00 Resp 15 06/08/25 07:00 BP 124/73 06/08/25 07:00 Pulse Ox 96 06/08/25 07:00 FiO2 Intake & Output 06/07/25 06/08/25 06/08/25 18:59 06:59 18:59 Intake Total 200 Output Total 1 Balance -1 200 Weight 77.111 kg Intake: Oral 200 Output: Urine 1 Other: Voiding Method Toilet # Voids 1 2 # Bowel Movements 1 2 - Labs CBC & Chem 7: 06/08/25 03:38 06/08/25 03:38 Labs: Abnormal Lab Results - Last 24 Hours (Table) 06/07/25 06/08/25 06/08/25 Range/Units 15:42 03:38 03:38 WBC 10.06 H (4.50-10.00) X 10*3/uL Neutrophils # 7.84 H (1.80-7.70) X 10*3/uL Eosinophils # 0 L (0.04-0.35) X 10*3/uL Calcium 8.6 L (8.7-10.3) mg/dL Total Protein 5.7 L (6.2-8.2) g/dL Ur Specific [place] 1.042 H (1.001-1.035) Urine Glucose (UA) Trace H (Negative) Urine Ketones Trace H (Negative) Urine Opiates Screen Detected H (NotDetected) U Marijuana (THC) Screen Detected H (NotDetected) Microbiology - Last 24 Hours (Table) 06/05/25 13:05 Blood Culture - Preliminary Blood
--- NOTE | 2025-06-08 23:08 | PN ---
PROGRESS NOTE DATE OF SERVICE: 06/08/2025 SUBJECTIVE: This is a 34-year-old gentleman admitted with abdominal pain, nausea with possible ulcerative colitis with exacerbation. No chest pain no palpitation. PHYSICAL EXAMINATION: VITAL SIGNS: Pulse is 52, blood pressure 130/70, respirations 17. CHEST: Clear to auscultation. CARDIAC: S1, S2. ABDOMEN: Soft, mild diffuse discomfort. LABORATORY DATA: Reviewed. ASSESSMENT: 1. Abdominal pain, nausea, vomiting, possible ulcerative colitis acute exacerbation with failure of outpatient treatment. 2. Accelerated hypertension. 3. Increased WBC. 4. Bradycardia. 5. History of gastritis and proctitis. 6. History of C. difficile colitis. 7. History of vaping. 8. Multiple complex medical issues. RECOMMENDATIONS: Recommend to continue current management and symptomatic treatment. Otherwise, we will continue to monitor. Guarded prognosis. White count is being normalized. Further recommendations to follow. MMODL / IJN: [id number] /
[2025-06-09 07:54] LABS: Basophils # (A) 0.01 X 10*3/uL (0.00-0.10); Basophils % (A) 0.2 %; Eosinophils # (A) 0.03 X 10*3/uL (0.04-0.35); Eosinophils % (A) 0.5 %; HCT 42.3 % (39.6-50.0); HGB 14.3 g/dL (13.0-17.0); Immature Grans, Automated 0.20 %; Lymphocytes # (A) 1.74 X 10*3/uL (0.90-5.00); Lymphocytes % (A) 27.9 %; MCH 31.4 pg (27.0-32.0); MCHC 33.8 g/dL (32.0-37.0); MCV 93.0 FL (80.0-97.0); Monocytes # (A) 0.66 X 10*3/uL (0.20-1.00); Monocytes % (A) 10.6 %; NRBC Per 100 WBC 0 X 10*3/uL (0.00-0.01); Neutrophils # (A) 3.78 X 10*3/uL (1.80-7.70); Neutrophils % (A) 60.6 %; Platelet Count 208 X 10*3/uL (140-440); RBC 4.55 X 10*6/uL (4.40-5.60); RDW 12.6 % (11.5-14.5); WBC 6.23 X 10*3/uL (4.50-10.00)
[2025-06-09 08:13] LABS: Anion Gap 7.80 mmol/L (4.00-12.00); BUN/Creat Ratio 12.50 Ratio (12.00-20.00); Blood Urea Nitrogen 17.5 mg/dL (9.0-27.0); Calcium 8.1 mg/dL (8.7-10.3); Carbon Dioxide 23.2 mmol/L (21.6-31.8); Chloride 106 mmol/L (96-109); Glucose 81 mg/dL (70-110); Potassium 3.9 mmol/L (3.5-5.5); Sodium 137 mmol/L (135-145)
[2025-06-09] MEDS: PEG 3350 (236 GM/BTL) + LYTES 4,000 ML BOTTLE PO ONE (09:21)
--- NOTE | 2025-06-09 12:31 | P.PN ---
Subjective Progress Note Date: 06/09/25 Principal diagnosis: Abdominal pain, colitis This a pleasant 34-year-old male who presented to the emergency department yesterday with complaints of severe abdominal pain with nausea and vomiting. Patient states that he had's been having abdominal pain for over a month now states that he will wake up with the pain and then he will have some nausea and vomiting. States the pain has gotten worse over the last couple days duration he feels that it is all over his abdomen shooting into his groin. States the pain is so bad that it makes him vomit. States that his normal bowel pattern is about 3 bowel movements a day but lately he is feeling a little bit more constipated. States his bowel movements have been formed there is no blood in them. He had a CT of the abdomen pelvis showing wall thickening of the distal sigmoid colon and rectum. Gastroenterology was consulted for colitis. States that he was diagnosed with ulcerative colitis many years ago but that he then had a EGD and colonoscopy in [address] Pena and he states that he was told that his colon looked normal EGD showed gastritis so he figured that his ulcerative colitis was gone. Patient was admitted with leukocytosis denies any fever or chills. He was started on Zosyn and Flagyl as well as IV Solu-Medrol 60 mg every 6 hours. States abdominal pain has improved some but the minute that he starts to eat or drink anything he gets severe abdominal pain then he throws everything up. 06/08/2025 Patient is seen and examined today as a follow-up. States abdominal pain is a little bit better today. He reports he does get a lot of cramping during bowel movement. Still has decreased appetite some nausea but no vomiting. He is having more diarrhea states he had 3 loose bowel movements from yesterday evening and through this morning. No blood in his stool. Leukocytosis improving. Sed rate and CRP both normal. Patient's been afebrile. 06/09/2025 Patient seen and examined today as a follow-up. States he still having some abdominal tenderness having about 3-4 nonbloody loose bowel movements a day. No nausea or vomiting. Patient's been afebrile. Stool specimen for C. difficile negative. Leukocytosis improved. He has been tolerating clear liquid diet. He is apparently scheduled and going for colonoscopy tomorrow with general surgery. Objective - Vital Signs Vital signs: Vital Signs Temp 97.6 F 06/09/25 00:35 Pulse 41 L 06/09/25 00:35 Resp 16 06/09/25 00:35 BP 126/64 06/09/25 00:35 Pulse Ox 98 06/09/25 00:35 FiO2 Intake & Output 06/08/25 06/09/25 06/09/25 18:59 06:59 18:59 Intake Total 320 Balance 320 Intake: Oral 320 Other: Voiding Method Toilet # Voids 2 1 # Bowel Movements 2 - Exam General appearance: The patient is alert, oriented, appears in no acute distress. HET: Head is normocephalic and atraumatic. Conjunctiva pink. Sclera anicteric. Neck: Supple without lymphadenopathy. Abdomen: Soft, nontender, nondistended. Extremities: Normal skin color and turgor. No pedal edema Skin: No rashes, no jaundice Neurological: No focal deficits. Alert and oriented. - Labs CBC & Chem 7: 06/09/25 04:19 06/09/25 04:19 Labs: Abnormal Lab Results - Last 24 Hours (Table) 06/08/25 06/08/25 Range/Units 03:38 03:38 WBC 10.06 H (4.50-10.00) X 10*3/uL Neutrophils # 7.84 H (1.80-7.70) X 10*3/uL Eosinophils # 0 L (0.04-0.35) X 10*3/uL Calcium 8.6 L (8.7-10.3) mg/dL Total Protein 5.7 L (6.2-8.2) g/dL Microbiology - Last 24 Hours (Table) 06/05/25 13:05 Blood Culture - Preliminary Blood Assessment and Plan (1) Colitis Narrative/Plan: 34-year-old male with reported history of ulcerative colitis not on any current treatment and reported no flareups in multiple years presents with abdominal pain and CT evidence of inflammation in the sigmoid colon and rectum. Unclear if patient has true diagnosis is of ulcerative colitis states he was diagnosed many years ago by colonoscopy but most recent EGD colonoscopy in 2020 with colonoscopy reporting mild proctitis and EGD gastritis. However biopsy results negative for any inflammatory bowel disease. Likely dealing with infectious colitis/diverticulitis, CRP and sed rate normal. Continue IV antibiotics. Current Visit: Yes Status: Acute Code(s): K52.9 - NONINFECTIVE GASTROENTERITIS AND COLITIS, UNSPECIFIED SNOMED Code(s): 31313729 (2) Abdominal pain Current Visit: Yes Status: Acute Code(s): R10.9 - UNSPECIFIED ABDOMINAL PAIN SNOMED Code(s): 07247477 (3) Pancreatic cyst Narrative/Plan: Unclear etiology, no history of previous pancreatitis. Outpatient follow-up, can repeat further imaging with CT or MRI at that time. Current Visit: Yes Status: Acute Code(s): K86.2 - CYST OF PANCREAS SNOMED Code(s): 95906375 Plan: 1. Continue symptomatic and supportive care 2. May have clear liquid diet, advance as tolerated 3. Pain medication as needed 4. Continue antibiotics as ordered 5. Steroids were discontinued 6. Antiemetics as needed 7. Protonix 40 mg daily for GI prophylaxis 8. Stool for C. difficile ordered and collected, negative 9. Colonoscopy not recommended at this time. Patient can follow-up as an outp atient for colonoscopy in 4 to 6 weeks 10. Further recommendations forthcoming based on clinical course Thank you for this consultation, we will continue to follow. Dr. Sara Gabriel I agree with the dictator's note, documented as a scribe by Jazlyn Yadav.
--- NOTE | 2025-06-09 15:07 | P.PN ---
Subjective Progress Note Date: 06/09/25 SURGICAL PROGRESS NOTE CHIEF COMPLAINT: Abdominal pain HISTORY OF PRESENT ILLNESS: Patient reporting a decrease in abdominal pain. Patient reports still having diarrhea. Tolerating clear liquids. Afebrile. WBC 6.23 PHYSICAL EXAM: VITAL SIGNS: Reviewed. GENERAL: Well-developed in no acute distress. ABDOMEN: Soft. Nondistended. Mild diffuse tenderness NEUROLOGIC: Alert and oriented. Cranial nerves II through XII grossly intact. ASSESSMENT: 1. Colitis PLAN: -Patient scheduled for colonoscopy tomorrow -GoLytely bowel prep today with clear liquid diet -Continue antibiotics Physician Senior Payroll Manager note has been reviewed by physician. Signing provider agrees with the documented findings, assessment, and plan of care. Objective - Vital Signs Vital signs: Vital Signs Temp 97.7 F 06/09/25 06:45 Pulse 49 L 06/09/25 09:19 Resp 16 06/09/25 09:19 BP 109/66 06/09/25 06:45 Pulse Ox 98 06/09/25 06:45 FiO2 Intake & Output 06/08/25 06/09/25 06/09/25 18:59 06:59 18:59 Intake Total 320 Balance 320 Intake: Oral 320 Other: Voiding Method Toilet Toilet # Voids 2 1 # Bowel Movements 2 - Labs CBC & Chem 7: 06/09/25 04:19 06/09/25 04:19 Labs: Abnormal Lab Results - Last 24 Hours (Table) 06/09/25 06/09/25 Range/Units 04:19 04:19 Eosinophils # 0.03 L (0.04-0.35) X 10*3/uL Calcium 8.1 L (8.7-10.3) mg/dL Microbiology - Last 24 Hours (Table) 06/05/25 13:05 Blood Culture - Preliminary Blood
--- NOTE | 2025-06-09 22:07 | P.PN ---
Subjective Progress Note Date: 06/09/25 This is a 34-year-old male who was recently admitted with abdominal pain with nausea with history of ulcerative colitis with acute exacerbation. GI and general surgery following and patient will be starting GoLytely prep as general surgery Dr. Ann will be performing colonoscopy on , 06/10/2025. Patient continues with significant pain maintained on clears reports to feeling slightly improved although continues with abdominal distention and pain. Patient denies current vomiting this time. No reports of chest pain or shortness of breath. Patient has been up to the bathroom and encouraged sitting up in the chair and increased activity as tolerated including walking more frequently. Will follow-up on repeat labs in the a.m. Review of systems: Constitutional: No reports of fatigue, fever, or chills Cardiovascular: No reports of chest pain or palpitations Respiratory: No reports of shortness of breath or cough GI: reports of nausea, no reports of further vomiting, currently undergoing GoLytely prep : No reports of dysuria or retention Neurovascular: reports of generalized weakness All medications have been reviewed PHYSICAL EXAMINATION: GENERAL: The patient is alert and oriented x4, Well developed, well nourished. Ill-appearing HEENT: Pupils are round and equally reacting to light. EOMI. no scleral icterus. No conjunctival pallor. Normocephalic, atraumatic. No pharyngeal erythema. No thyromegaly. CARDIOVASCULAR: S1 and S2 muffled PULMONARY: diminished breath sounds bilaterally with no wheezing or rhonchi noted. ABDOMEN: soft. tender on exam. Thin. Non-distended, normoactive bowel sounds. No palpable organomegaly. MUSCULOSKELETAL: No joint swelling or deformity. EXTREMITIES: No cyanosis, clubbing, or pedal edema. NEUROLOGICAL: Gross neurological examination did not reveal any focal deficits. SKIN: No rashes. Assessment: Abdominal pain, nausea, vomiting, possible ulcerative colitis, acute exacerbation with failure of outpatient treatment Accelerated hypertension, on admission, improving Increased WBC secondary to assessment #1 Bradycardia history of gastritis and proctitis History of C. difficile colitis plan history of vaping GI prophylaxis DVT prophylaxis Full code Plan: Recommend to continue with current medications and management with GI and general surgery following. GI has evaluated the patient and steroids were dis continued recommending bowel rest and slowly advancing diet from clear liquids with outpatient follow-up in 4 to 6 weeks. General surgery has evaluated the patient and is initiating GoLytely prep with tentative plans for colonoscopy on 06/10/2025. Patient to continue with clear liquids and n.p.o. at midnight and we will follow-up on repeat labs Replace electrolytes per protocol Continue current bowel regimen and encouraged increase activity as tolerated Await surgical recommendations and official colonoscopy report Due to multiple complex medical issues, overall prognosis is guarded The impression and plan of care has been dictated by Jess Purvis, nurse practitioner as directed. Dr. Cleve MD I have performed a history and examination and MDM of this patient, discussed the same with the dictator, and agree with the dictator's assessment and plan as written ,documented as a scribe. Based on total visit time, I have performed more than 50% of the visit. Any additional findings or plans will be noted. Objective - Vital Signs Vital signs: Vital Signs Temp 98.1 F 06/09/25 14:00 Pulse 48 L 06/09/25 14:00 Resp 15 06/09/25 14:00 BP 125/73 06/09/25 14:00 Pulse Ox 98 06/09/25 14:00 FiO2 Intake & Output 06/08/25 06/09/25 06/09/25 18:59 06:59 18:59 Intake Total 320 Balance 320 Intake: Oral 320 Other: Voiding Method Toilet Toilet # Voids 2 1 4 # Bowel Movements 2 - Labs CBC & Chem 7: 06/09/25 04:19 06/09/25 04:19 Labs: Abnormal Lab Results - Last 24 Hours (Table) 06/09/25 06/09/25 Range/Units 04:19 04:19 Eosinophils # 0.03 L (0.04-0.35) X 10*3/uL Calcium 8.1 L (8.7-10.3) mg/dL Microbiology - Last 24 Hours (Table) 06/05/25 13:05 Blood Culture - Preliminary Blood
[2025-06-10 05:08] LABS: Basophils # (A) 0.01 10*3/uL (0.00-0.10); Basophils % (A) 0.2 %; Eosinophils # (A) 0.15 10*3/uL (0.04-0.35); Eosinophils % (A) 2.4 %; HCT 41.7 % (39.6-50.0); HGB 14.9 g/dL (13.0-17.0); Lymphocytes # (A) 1.78 10*3/uL (0.90-5.00); Lymphocytes % (A) 28.0 %; MCH 32.7 pg (27.0-32.0); MCHC 35.7 g/dL (32.0-37.0); MCV 91.4 fL (80.0-97.0); Monocytes # (A) 0.53 10*3/uL (0.20-1.00); Monocytes % (A) 8.3 %; Neutrophils # (A) 3.86 10*3/uL (1.80-7.70); Neutrophils % (A) 60.8 %; Platelet Count 207 10*3/uL (140-440); RBC 4.56 10*6/uL (4.40-5.60); RDW 12.3 % (11.5-14.5); WBC 6.35 10*3/uL (4.50-10.00)
[2025-06-10 06:00] LABS: African American GFR (CKD) 80 (>60 ml/min/1.73 sqM); Anion Gap 7 mmol/L; Blood Urea Nitrogen 11 mg/dL (9-20); Calcium 8.4 mg/dL (8.4-10.2); Carbon Dioxide 23 mmol/L (22-30); Chloride 106 mmol/L (98-107); Glucose 72 mg/dL (74-99); Non-African American GFR(CKD) 69 (>60 ml/min/1.73 sqM); Potassium 3.8 mmol/L (3.5-5.1); Sodium 136 mmol/L (137-145)
[2025-06-10 08:01] VITALS: PULSE 48; RESP 16
[2025-06-10] MEDS ORDERED: PROPOFOL 10 MG/ML 20 ML VIAL IV ONE (09:43)
[2025-06-10] MEDS: IV FLUID CONTINUATION 1,000 ML IV ONE ×2 (09:45→10:01)
--- NOTE | 2025-06-10 10:05 | P.OP ---
Date of Procedure: 06/10/25 Preoperative Diagnosis: Colitis Postoperative Diagnosis: Middle colitis sigmoid colon Procedure(s) Performed: Colonoscopy Anesthesia: MAC Surgeon: Casper Ann Pathology: other (Sigmoid colon biopsy) Condition: stable Disposition: PACU Description of Procedure: The patient was placed on the endoscopy table lateral position. He received IV sedation. Digital rectal exam performed. This revealed no abnormalities. Flexible colonoscope was then placed patient Anaspaz throughout the entire colon. The ileocecal valve was visualized. The cecum, ascending and transverse colon appeared normal. The descending colon appeared normal. The sigmoid colon there was possible mild inflammation. This area was biopsied. With a cold forcep. Scope was back rectum this appeared normal. Scope withdrawn patient. Findings very minimal inflammation of sigmoid colon
[2025-06-10 10:31] VITALS: BP 114/72; TEMP 97.5
--- NOTE | 2025-06-10 14:01 | P.PN ---
Subjective Progress Note Date: 06/10/25 SURGICAL PROGRESS NOTE CHIEF COMPLAINT: Abdominal pain HISTORY OF PRESENT ILLNESS: Patient reports he is feeling better. He is status post colonoscopy. Results reported mild colitis sigmoid colon. Patient is tolerating diet. Pain controlled. He would like to be discharged. PHYSICAL EXAM: VITAL SIGNS: Reviewed. GENERAL: Well-developed in no acute distress. ABDOMEN: Soft. Nondistended. NEUROLOGIC: Alert and oriented. Cranial nerves II through XII grossly intact. ASSESSMENT: 1. Colitis 2. Abdominal pain possibly due to pancreatic pseudocyst PLAN: -Advance diet to regular -Patient can be discharged from surgical standpoint -Recommend outpatient follow-up with GI service regarding pancreatic cyst Physician Tanning Drum Operator note has been reviewed by physician. Signing provider agrees with the documented findings, assessment, and plan of care. Objective - Vital Signs Vital signs: Vital Signs Temp 97.5 F L 06/10/25 10:30 Pulse 48 L 06/10/25 10:30 Resp 16 06/10/25 10:30 BP 114/72 06/10/25 10:30 Pulse Ox 100 06/10/25 10:30 FiO2 Intake & Output 06/09/25 06/10/25 06/10/25 18:59 06:59 18:59 Intake Total 240 200 Output Total 500 Balance 240 -300 Intake: IV 200 Oral 240 Output: Urine 500 Other: Voiding Method Toilet Toilet Toilet # Voids 4 - Labs CBC & Chem 7: 06/10/25 04:37 06/10/25 04:37 Labs: Abnormal Lab Results - Last 24 Hours (Table) 06/10/25 06/10/25 Range/Units 04:37 04:37 MCH 32.7 H (27.0-32.0) pg Sodium 136 L (137-145) mmol/L Creatinine 1.33 H (0.66-1.25) mg/dL Glucose 72 L (74-99) mg/dL
--- NOTE | 2025-06-13 12:37 | P.DS ---
Providers Date of admission: 06/05/25 12:06 Expected date of discharge: 06/10/25 Attending physician: Mac Poon Consults: 06/05/25 12:03 Consult Physician Routine Consulting Provider: Casper Ann Consult Reason/Comments: colitis Do you want consulting provider notified?: Yes 06/06/25 11:40 Consult Physician Routine Consulting Provider: Bev Gabriel Consult Reason/Comments: colitis Do you want consulting provider notified?: Yes Primary care physician: Negra Weldon Hospital Course: Final diagnosis Abdominal pain, nausea, vomiting, possible ulcerative colitis, acute exacerbation with failure of outpatient treatment Accelerated hypertension, on admission, improving Increased WBC secondary to assessment #1 Bradycardia history of gastritis and proctitis History of C. difficile colitis plan history of vaping GI prophylaxis DVT prophylaxis Full code Discharge disposition Patient is being discharged in a stable condition with guarded prognosis to home. Patient will follow-up with Dr. Isacc Poon in the outpatient setting upon discharge. Patient is to continue with medications and outpatient follow- up with GI and general surgery as scheduled. Total time taken is greater than 35 minutes. Hospital course This is a 34-year-old male who was recently admitted with abdominal pain nausea vomiting with acute exacerbation of ulcerative colitis. Patient also noted to have hypertension uncontrolled on admission is improving. Patient was evaluated by GI not recommending any endoscopic intervention at this time and outpatient follow-up for further studies. General surgery then evaluated and underwent colonoscopy with some biopsies obtained otherwise clear and has been instructed to follow-up for results as well as following up with GI in the outpatient setting. Patient has been instructed to avoid all alcohol intake and continue current soft diet. Continue short course of antibiotics on discharge and recommend close outpatient follow-up. Please refer to consultation notes for further HPI. The patient reports to feeling better tolerating diet and currently no bloody bowel movements and would like to go home. Currently no reports of chest pain, shortness of breath, or palpitations. Patient is afebrile. No reports of nausea or vomiting and patient is tolerating diet. Patient will be discharged home today. Guarded prognosis Physical exam: Gen: This is a 34-year-old male who is awake, alert and oriented x 3, well- developed, well-nourished HEENT: Head is atraumatic, normocephalic. Pupils equal, round. Sclerae is anicteric. NECK: Supple. No JVD. No lymphadenopathy. No thyromegaly. LUNGS: Clear to auscultation. No wheezes or rhonchi. No intercostal retractions. HEART: Regular rate and rhythm. No murmur. ABDOMEN: Soft. Bowel sounds are present. No masses. No tenderness. EXTREMITIES: No pedal edema. No calf tenderness. NEUROLOGICAL: Patient is awake, alert and oriented x3. Cranial nerves 2 through 12 are grossly intact. Please refer to medication reconciliation sheet for a list of medications. The impression and plan of care has been dictated by Jess Purvis, Nurse Practitioner as directed. Dr. Cleve MD I have performed a history and examination and MDM of this patient, discussed the same with the dictator, and agree with the dictator's assessment and plan as written ,documented as a scribe. Based on total visit time, I have performed more than 50% of the visit. Patient Condition at Discharge: Fair Plan - Discharge Summary Discharge Rx Participant: No New Discharge Prescriptions: New Amoxic-Pot Clav 875-125Mg [Augmentin 875-125] 1 tab PO BID 3 Days #6 tab metroNIDAZOLE [Flagyl] 500 mg PO TID 3 Days #9 tab Discontinued Doxycycline [Vibramycin] 100 mg PO BID #14 capsule predniSONE [Deltasone] 20 mg PO BID #10 tab Discharge Medication List Amoxic-Pot Clav 875-125Mg [Augmentin 875-125] 1 tab PO BID 3 Days #6 tab 06/10/25 [Rx] metroNIDAZOLE [Flagyl] 500 mg PO TID 3 Days #9 tab 06/10/25 [Rx] Follow up Appointment(s)/Referral(s): Bev Gabriel MD [STAFF PHYSICIAN] - 4 Weeks Negra Weldon MD [Primary Care Provider] - 1-2 days Activity/Diet/Wound Care/Special Instructions: Activity limited until follow-up Follow-up with Dr. Gabriel GI outpatient Follow-up with primary care provider on discharge Continue antibiotics until finished Continue current diet and slowly advance as tolerated Discharge Disposition: HOME SELF-CARE
== END 2025-06-10 15:31 | disposition home or self-care (01) | DRG 386 ==
LOC: EC 10:30 → 6NMEDSUR 12:05 → OBSVTOIN 12:06 → 6NMEDSUR 13:09 → 4SSUR 14:43
PROVIDERS: ADMIT Hospitalist; ATTEND Hospitalist
PROC: 0DBN8ZX Excision of Sigmoid Colon, Via Natural or Artificial Opening Endoscopic, Diagnostic (ICD-10-PCS; principal; 2025-06-10 09:05)
DX: K51.90 Ulcerative colitis, unspecified, without complications (principal); K86.2 Cyst of pancreas; I10 Essential (primary) hypertension; K59.00 Constipation, unspecified; Z86.19 Personal history of other infectious and parasitic diseases; Z87.891 Personal history of nicotine dependence
CPT/HCPCS: 36415; 45380; 71045; 74018; 80048; 80053; 80306; 81003; 82150; 83690; 85025; 85610; 85652; 85730; 86140; 87040; 87493; 88305; 96361; 96374; 96375; 96376; 99285